=== PATIENT | female | born 1970 | race Caucasian/White ===

== ENCOUNTER 2022-05-16 08:52 | Outpatient (REF) | payer OTHER, SELFPAY ==
--- NOTE | ~2022-05-16 | US_ITS ---
EXAMINATION: US ABDOMEN COMPLETE CLINICAL INFORMATION: Right upper quadrant pain. COMPARISON: None TECHNIQUE: Real-time imaging of the abdominal viscera. FINDINGS: PANCREAS: Normal. ABDOMINAL AORTA: The proximal, mid, and distal segments are normal in caliber. INFERIOR VENA CAVA: Visualized portions are normal. LIVER: The liver is normal in size. The liver contour is normal. Parenchymal echogenicity is normal. There is an anechoic cyst in left hepatic lobe measuring 0.8 x 0.5 x 0.7 cm. No additional lesions seen. There is no intrahepatic biliary duct dilatation seen. GALLBLADDER: There is echogenic mobile debris. The gallbladder is physiologically distended without evidence of stones, wall thickening or pericholecystic fluid. COMMON BILE DUCT: Normal in caliber measuring 0.2 cm in diameter. RIGHT KIDNEY: No hydronephrosis. No renal calculi or focal parenchymal lesions. The kidney measures 10.8 cm in maximum dimension. There is an extrarenal kidney pelvis. LEFT KIDNEY: There is mild pelvic fullness. No hydronephrosis. No renal calculi or focal parenchymal lesions. The kidney measures 11.4 cm in maximum dimension. SPLEEN: Normal. The spleen measures 7.4 cm in maximum dimension. FREE FLUID: None. US/US abdomen complete IMPRESSION: 1. Small left hepatic lobe cyst. 2. There is echogenic mobile debris in the gallbladder but no echogenic stones or wall thickening. 3. Extrarenal right kidney pelvis and mild pelvic fullness left kidney. 4. The rest of the abdominal ultrasound is unremarkable.
--- NOTE | ~2022-05-16 | XR_ITS ---
EXAMINATION: XR chest 2V CLINICAL INFORMATION: Reason for Exam RUQ PAIN COMPARISON: None TECHNIQUE: 2 views of the chest FINDINGS: Clear lungs. No pneumothorax or pleural effusion. Normal cardiomediastinal silhouette. XR/XR chest 2V Impression: * Clear lungs.
== END 2022-05-16 08:53 | disposition home or self-care (01) ==
LOC: HO.US 08:52
PROVIDERS: PCP Internal Medicine; Visit Provider Internal Medicine
DX: R10.11 Right upper quadrant pain (principal)
CPT/HCPCS: 71046; 76700

== ENCOUNTER 2022-05-17 07:59 | Outpatient (REF) | payer OTHER, SELFPAY ==
[2022-05-17 11:45] LABS: MANUAL DIFF FLAG NO
[2022-05-17 11:51] LABS: Basophils Percent Auto 0.5 % (0-2); Eosinophils Absolute Auto 0.2 X10*3/uL (0.0-0.4); Eosinophils Percent Auto 2.4 % (0-4); Hematocrit 42.7 % (37.0-47.0); Hemoglobin 14.2 g/dl (12.0-16.0); Imm Gran Abs Auto 0.02 X10*3/uL (0.00-0.03); Imm Gran Pct Auto 0.2 % (0.0-0.4); Lymphocytes Absolute Auto 2.1 X10*3/uL (1.2-4.9); Lymphocytes Percent Auto 26.2 % (20-40); Mean Corpuscular HGB Conc 33.3 g/dl (31.0-35.0); Mean Corpuscular Hemoglobin 31.3 pg (27.0-33.0); Mean Corpuscular Volume 94.1 fL (80.0-98.0); Mean Platelet Volume 10.5 fL (9.4-12.3); Monocytes Absolute Auto 0.5 X10*3/uL (0.1-1.2); Monocytes Percent Auto 5.8 % (2-11); Neutrophils Absolute Auto 5.2 x10*3/uL (2.0-8.3); Neutrophils Percent Auto 64.9 % (45-73); Platelet Count 335 X10*3/uL (160-400); Red Blood Count 4.54 X10*6/uL (4.20-5.50); Red Cell Distribution Width 12.8 % (11.0-16.0)
[2022-05-17 12:28] LABS: Alanine Aminotransferase 60 U/L (0-31); Albumin Level 4.3 g/dL (3.5-5.0); Alkaline Phosphatase 62 U/L (39-117); Anion Gap 11 (12-20); Aspartate Amino Transferase 37 U/L (5-31); Bilirubin Total 0.6 mg/dL (0.0-1.0); Blood Urea Nitrogen 13 mg/dL (9-16); Calcium 9.7 mg/dL (8.4-10.2); Carbon Dioxide 26 mmol/L (22-29); Chloride 107 mmol/L (96-108); Cholesterol 283 mg/dL; Estimated Glomerular Filt Rate > 60; Glucose Fasting 96 mg/dL (60-99); HDL Cholesterol 72 mg/dL; LDL Cholesterol Calculated 192 mg/dl; Potassium 3.6 mmol/L (3.3-5.1); Sodium 140 mmol/L (135-145); Total Protein 6.8 g/dL (6.5-8.0); Triglycerides 96 mg/dL
[2022-05-17 12:44] LABS: Thyroid Stimulating Hormone 1.87 uIU/mL (0.32-4.0); Vitamin D 25-OH Total 12.2 ng/mL (>30)
[2022-05-18 17:49] LABS: Prolactin 9.9 ng/mL
== END 2022-05-17 08:00 | disposition home or self-care (01) ==
LOC: HO.HMGCLDS 07:59
PROVIDERS: PCP Internal Medicine; Visit Provider Internal Medicine
DX: F41.9 Anxiety disorder, unspecified (principal); R10.11 Right upper quadrant pain; M94.28 Chondromalacia, other site
CPT/HCPCS: 36415; 80053; 80061; 82306; 84146; 84443; 85025

== ENCOUNTER 2022-06-02 08:17 | Outpatient (REF) | payer OTHER, SELFPAY ==
--- NOTE | ~2022-06-02 | MM_ITS ---
EXAMINATION: MM DIAGNOSTIC DIGITAL BREAST TOMOSYNTHESIS, BILATERAL US BREAST TARGETED, RIGHT CLINICAL INFORMATION: Right breast mass 5 o'clock position. The lifetime risk of breast cancer based on the Tyrer-Cuzick Model is 11.3%. COMPARISON: Mammography: 07/12/2021 and studies dating back to 07/01/2013. TECHNIQUE: Digital breast tomosynthesis is performed in both the craniocaudal and mediolateral oblique views along with computer-aided detection (CAD). Synthesized 2D images are generated from the tomosynthesis. Targeted right breast ultrasound. FINDINGS: There are scattered areas of fibroglandular density (ACR BI-RADS breast composition Category b). There are no significant masses, abnormal calcifications, or other abnormalities. Stable density within the upper outer aspect of the left breast is identified. No abnormal mammographic finding is seen in region of palpable abnormality anteroinferior aspect of the right breast. Targeted right breast ultrasound did not demonstrate any abnormal cystic or solid masses. No region of abnormal distal sound shadowing is identified. No edematous changes seen. There are a few simple cysts measuring up to 3 mm in longest dimension. Results are discussed with the patient at time of visit. MM/MM tomosynthesis diagnostic BI IMPRESSION: There are no significant changes from prior study. ASSESSMENT: BI-RADS 2: Benign RECOMMENDATION: Routine annual mammography screening. This patient's information was entered into a reminder system with a target due date for their next mammogram.
== END 2022-06-02 08:18 | disposition home or self-care (01) ==
LOC: HO.MAMMO 08:17
PROVIDERS: PCP Internal Medicine; Visit Provider Internal Medicine
DX: N63.41 Unspecified lump in right breast, subareolar (principal)
CPT/HCPCS: 76642; 77062; 77066

== ENCOUNTER 2022-07-28 15:20 | Outpatient (REF) | payer OTHER, SELFPAY ==
--- NOTE | ~2022-07-28 | CT_ITS ---
EXAMINATION: CT CHEST SCREENING CLINICAL INFORMATION: Nicotine dependence, cigarettes. Current smoker 1 pack per day for 36 years. COMPARISON: None available. TECHNIQUE: Multidetector volumetric CT imaging of the chest is performed without contrast using low-dose technique. Additional 2-D coronal and sagittal reformatted images and axial 3-D maximum intensity projection (MIP) images are generated on the CT workstation. This CT examination was performed using dose optimization techniques as appropriate, variously including the following: *Automated exposure control *Adjustment of mA and/or kV according to patient size (this includes techniques or standardized protocols for targeted exams where dose is matched to indication/reason for exam; i.e. extremities or head) *Use of iterative reconstruction technique DLP: 41 mGy-cm FINDINGS: LUNGS: The lungs are well expanded and clear of acute pneumonic process. There is 4 mm round semisolid nodule right lower lobe at the azygoesophageal recess on axial image 27/4. There is a peribronchiolar 3 mm nodule right lower lobe centrally axial image 229/6, 3 mm nodule right upper lobe medially on axial image 151/6. MEDIASTINUM: The thyroid lobes are symmetric and normal. The central trachea and the bronchi are widely patent. The heart size and the great vessels are normal caliber. No pericardial effusion seen. No abnormal size mediastinal or hilar lymph nodes seen. CORONARY ARTERY CALCIFICATION: None visualized on this study. PLEURA: There is no pleural effusion. No pleural mass or thickening. AXILLA: Small shotty lymph nodes in bilateral axillae are noted. UPPER ABDOMEN: The visualized liver, spleen, pancreas, and bilateral adrenal glands are unremarkable. OSSEOUS STRUCTURES: No aggressive lytic or sclerotic process seen. CT/CT lung screening IMPRESSION: Small pulmonary nodules right upper lobe and right lower lobe. ASSESSMENT: Lung-RADS category 2: Benign RECOMMENDATION: Low-dose annual CT chest.
== END 2022-07-28 15:21 | disposition home or self-care (01) ==
LOC: HO.CT 15:20
PROVIDERS: PCP Internal Medicine; Visit Provider Physician Assistant Medical
DX: Z12.2 Encounter for screening for malignant neoplasm of respiratory organs (principal); F17.210 Nicotine dependence, cigarettes, uncomplicated
CPT/HCPCS: 71271; G0296

== ENCOUNTER 2022-11-20 07:56 | Outpatient (REF) | payer OTHER, SELFPAY ==
[2022-11-20 12:01] LABS: Alanine Aminotransferase 27 U/L (0-31); Albumin Level 4.2 g/dL (3.5-5.0); Alkaline Phosphatase 55 U/L (39-117); Anion Gap 12 (12-20); Aspartate Amino Transferase 22 U/L (5-31); Bilirubin Total 0.7 mg/dL (0.0-1.0); Blood Urea Nitrogen 13 mg/dL (9-16); Calcium 9.6 mg/dL (8.4-10.2); Carbon Dioxide 26 mmol/L (22-29); Chloride 108 mmol/L (96-108); Cholesterol 218 mg/dL; Estimated Glomerular Filt Rate > 60; Glucose Fasting 88 mg/dL (60-99); HDL Cholesterol 65 mg/dL; LDL Cholesterol Calculated 135 mg/dl; Potassium 3.5 mmol/L (3.3-5.1); Sodium 142 mmol/L (135-145); Total Protein 6.8 g/dL (6.5-8.0); Triglycerides 94 mg/dL
[2022-11-20 12:16] LABS: Vitamin D 25-OH Total 61.4 ng/mL (>30)
== END 2022-11-20 07:57 | disposition home or self-care (01) ==
LOC: HO.HMGCLDS 07:56
PROVIDERS: PCP Internal Medicine; Visit Provider Internal Medicine
DX: R10.11 Right upper quadrant pain (principal); E78.00 Pure hypercholesterolemia, unspecified; E55.9 Vitamin D deficiency, unspecified
CPT/HCPCS: 36415; 80053; 80061; 82306

== ENCOUNTER 2023-02-22 06:12 | Day surgery (SDC) | payer OTHER, SELFPAY ==
--- OUTSIDE RECORDS SUMMARY | 2023-02-22 06:14 | XMS_ITS | Patient Health Record ---
Author Name Unknown Organization Kike Ellis DO, FAC Address [address] [place] [phone] Care Team Providers Care Burglary Investigator Name Role Phone Kike Ellis Primary Care Provider ALLERGIES No Known Allergies RESULTS Component Value Reference Range Notes US abdomen complete Reviewed date:05/17/2022 04:47:55 PM Interpretation:Abnormal Performing Lab: Notes/Report: [address] [address] Ultrasound Report Signed Patient: Greta Collazo MR#: [id number] 68 : 1970 Acct:[id number] Age/Sex: 51 / F ADM Date: 05/16/22 Loc: HO.US Attending Dr: Kike Ellis DO Ordering Physician: Kike Ellis DO Date of Service: 05/16/22 Procedure(s): US abdomen complete Accession Number(s): [id number] cc: Kike Ellis DO EXAMINATION: US ABDOMEN COMPLETE CLINICAL INFORMATION: Right upper quadrant pain. COMPARISON: None TECHNIQUE: Real-time imaging of the abdominal viscera. FINDINGS: PANCREAS: Normal. ABDOMINAL AORTA: The proximal, mid, and distal segments are normal in caliber. INFERIOR VENA CAVA: Visualized portions are normal. LIVER: The liver is normal in size. The liver contour is normal. Parenchymal echogenicity is normal. There is an anechoic cyst in left hepatic lobe measuring 0.8 x 0.5 x 0.7 cm. No additional lesions seen. There is no intrahepatic biliary duct dilatation seen. GALLBLADDER: There is echogenic mobile debris. The gallbladder is physiologically distended without evidence of stones, wall thickening or pericholecystic fluid. COMMON BILE DUCT: Normal in caliber measuring 0.2 cm in diameter. RIGHT KIDNEY: No hydronephrosis. No renal calculi or focal parenchymal lesions. The kidney measures 10.8 cm in maximum dimension. There is an extrarenal kidney pelvis. LEFT KIDNEY: There is mild pelvic fullness. No hydronephrosis. No renal calculi or focal parenchymal lesions. The kidney measures 11.4 cm in maximum dimension. SPLEEN: Normal. The spleen measures 7.4 cm in maximum dimension. FREE FLUID: None. US/US abdomen complete IMPRESSION: 1. Small left hepatic lobe cyst. 2. There is echogenic mobile debris in the gallbladder but no echogenic stones or wall thickening. 3. Extrarenal right kidney pelvis and mild pelvic fullness left kidney. 4. The rest of the abdominal ultrasound is unremarkable. Dictated By: Emory Quijano MD Signed By: <Electronically signed by Emory Quijano MD in OV> 05/17/22 1611 DD/ 0938 TD/TT: Glycerine Plant Operator: [facility] XR chest 2V Reviewed date:05/18/2022 11:56:03 AM Interpretation:Normal Performing Lab: Notes/Report: [address] [address] XRay Report Signed Patient: Greta Collazo MR#: [id number] [birth year] : 1970 Acct:[id number] Age/Sex: 51 / F ADM Date: 05/16/22 Loc: [facility] Attending Dr: Kike Ellis DO Ordering Physician: Kike Ellis DO Date of Service: 05/16/22 Procedure(s): XR chest 2V Accession Number(s): [id number] cc: Kike Ellis DO EXAMINATION: XR chest 2V CLINICAL INFORMATION: Reason for Exam RUQ PAIN COMPARISON: None TECHNIQUE: 2 views of the chest FINDINGS: Clear lungs. No pneumothorax or pleural effusion. Normal cardiomediastinal silhouette. XR/XR chest 2V Impression: * Clear lungs. Dictated By: Yeny Goddard MD Signed By: <Electronically signed by Yeny Goddard MD in OV> 05/17/22 1850 DD/ 0924 TD/TT: Glycerine Plant Operator: Complete Blood Count Auto Di ff Reviewed date:05/17/2022 11:59:01 AM Interpretation:Normal Performing Lab:[facility], [address] [place] [phone] Notes/Report: White Blood Count 8.0 4.8-10.8 X10*3/uL Red Blood Count 4.54 4.20-5.50 X10*6/uL Hemoglobin 14.2 12.0-16.0 g/dl Hematocrit 42.7 37.0-47.0 % Mean Corpuscular Volume 94.1 80.0-98.0 fL Mean Corpuscular Hemoglobin 31.3 27.0-33.0 pg Mean Corpuscular HGB Conc 33.3 31.0-35.0 g/dl Red Cell Distribution Width 12.8 11.0-16.0 % Platelet Count 335 160-400 X10*3/uL Mean Platelet Volume 10.5 9.4-12.3 fL Neutrophils Percent Auto 64.9 45-73 % Imm Gran Pct Auto 0.2 0.0-0.4 % Lymphocytes Percent Auto 26.2 20-40 % Monocytes Percent Auto 5.8 2-11 % Eosinophils Percent Auto 2.4 0-4 % Basophils Percent Auto 0.5 0-2 % NRBC Pct Auto 0.0 0.0-0.2 /100WBC Neutrophils Absolute Auto 5.2 2.0-8.3 x10*3/u L Imm Gran Abs Auto 0.02 0.00-0.03 X10*3/uL Lymphocytes Absolute Auto 2.1 1.2-4.9 X10*3/u L Monocytes Absolute Auto 0.5 0.1-1.2 X10*3/uL Eosinophils Absolute Auto 0.2 0.0-0.4 X10*3/u L Basophils Absolute Auto 0.0 0.0-0.2 X10*3/uL NRBC Abs Auto 0.000 0.0-0.012 X10*3/uL Comprehensive [place]. Panel Fa st Reviewed date:05/17/2022 12:53:27 PM Interpretation:Abnormal Performing Lab:[facility], [address] [place] [address] Notes/Report: Sodium 140 135-145 mmol/L Potassium 3.6 3.3-5.1 mmol/L Chloride 107 96-108 mmol/L Carbon Dioxide 26 22-29 mmol/L Anion Gap 11 12-20 Blood Urea Nitrogen 13 9-16 mg/dL Creatinine 0.81 0.5-1.4 mg/dL Estimated Glomerular Filt Rate > 60 NOTE: For -Pakistani individuals, multiply the result by 1.210. Chronic Kidney Disease: Estimated GFR < 60 mL/min/1.73m2 Severe Kidney Disease: Estimated GFR < 15 mL/min/1.73m2 Glucose Fasting 96 60-99 mg/dL Calcium 9.7 8.4-10.2 mg/dL Bilirubin Total 0.6 0.0-1.0 mg/dL Aspartate Amino Transferase 37 5-31 U/L Alanine Aminotransferase 60 0-31 U/L Total Protein 6.8 6.5-8.0 g/dL Albumin Level 4.3 3.5-5.0 g/dL Alkaline Phosphatase 62 39-117 U/L Lipid Panel Reviewed date:05/17/2022 12:53:27 PM Interpretation:Abnormal Performing Lab:[facility], [address] [place] [phone] Notes/Report: Triglycerides 96 Desirable Triglyceride: less than 150 mg/dL Borderline High Triglyceride 150-199 mg/dL High Triglyceride: 200-499 mg/dL Very High Triglyceride: greater than or equal to 5OO mg/dL Cholesterol 283 Desirable Cholesterol: less than 200 mg/dL Borderline High Cholesterol: 200-239 mg/dL High Cholesterol: greater than 239 mg/dL LDL Cholesterol Calculated 192 Desirable LDL: less than 100 mg/dL Near Optimal/Above Optimal LDL: 110-129 mg/dL Borderline High LDL: 130-159 mg/dL High LDL: 160-189 mg/dL Very High LDL: greater than or equal to 190 mg/dL HDL Cholesterol 72 Desirable HDL: greater than 40 mg/dL Note: This HDL assay may give artificially low results in patients with liver disease. Vitamin D 25-OH Total Reviewed date:05/17/2022 12:53:27 PM Interpretation:Abnormal Performing Lab:[facility], [address] [place] [phone] Notes/Report: Vitamin D 25-OH Total 12.2 >30 ng/mL Health Based Reference Values* < 20 ng/mL Deficient 20-30 ng/mL Insufficient > 30 ng/mL Sufficient *Ela VELASQUEZ. N Engl J Med. 2007;357:266-280 Care must be taken in interpreting Vitamin D results from different laboratories and methodologies. Published data demonstrated that results from patients undergoing hemodialysis may show a negative bias when tested with various automated 25-OH vitamin D assays when compared to LC-MS/MS. When testing samples from patients whose predominant form of Vitamin D is Vitamin D2, such as patients receiving Vitamin D2 supplementation, results that are subtherapeutic should be confirmed with another method such as LC-MS/MS. Thyroid Stimulating Hormone Reviewed date:05/17/2022 12:55:04 PM Interpretation:Normal Performing Lab:[facility], [address] [place] [phone] Notes/Report: Thyroid Stimulating Hormone 1.87 0.32-4.0 uIU/ mL TSH 3rd Generation ([facility]) Prolactin Reviewed date:05/18/2022 11:04:52 PM Interpretation:Normal Performing Lab:[facility], [address] [place] [phone] Notes/Report: Prolactin 9.9 Reference Range Females Non- 3.0-30.0 10.0-209.0 Postmenopausal 2.0-20.0 THIS TEST WAS PERFORMED AT: [facility] [address] ([facility]) [place] [address] MARY ANN ALMODOVAR MD MM tomosynthesis diagnostic BI Reviewed date:06/03/2022 01:28:59 PM Interpretation:Benign Performing Lab: Notes/Report: [address] [place] [address] Mammography Report Signed Patient: Greta Collazo MR#: [id number] [birth year] : 1970 Acct:[id number] Age/Sex: 51 / F ADM Date: 06/02/22 Loc: HO.MAMMO Attending Dr: Kike Ellis DO Ordering Physician: Kike Ellis DO Results: 2Ben ign Findings Date of Service: 06/02/22 Follow Up: 1 Year From Orig inal Mammogram Procedure(s): MM tomosynthesis diagnostic BI Accession Number(s): [id number] cc: Kike Ellis DO EXAMINATION: MM DIAGNOSTIC DIGITAL BREAST TOMOSYNTHESIS, BILATERAL US BREAST TARGETED, RIGHT CLINICAL INFORMATION: Right breast mass 5 o'clock position. The lifetime risk of breast cancer based on the Tyrer-Cuzick Model is 11.3%. COMPARISON: Mammography: 07/12/2021 and studies dating back to 07/01/2013. TECHNIQUE: Digital breast tomosynthesis is performed in both the craniocaudal and mediolateral oblique views along with computer-aided detection (CAD). Synthesized 2D images are generated from the tomosynthesis. Targeted right breast ultrasound. FINDINGS: There are scattered areas of fibroglandular density (ACR BI-RADS breast composition Category b). There are no significant masses, abnormal calcifications, or other abnormalities. Stable density within the upper outer aspect of the left breast is identified. No abnormal mammographic finding is seen in region of palpable abnormality anteroinferior aspect of the right breast. Targeted right breast ultrasound did not demonstrate any abnormal cystic or solid masses. No region of abnormal distal sound shadowing is identified. No edematous changes seen. There are a few simple cysts measuring up to 3 mm in longest dimension. Results are discussed with the patient at time of visit. MM/MM tomosynthesis diagnostic BI IMPRESSION: There are no significant changes from prior study. ASSESSMENT: BI-RADS 2: Benign RECOMMENDATION: Routine annual mammography screening. This patient's information was entered into a reminder system with a target due date for their next mammogram. Dictated By: Ten Calderon MD Signed By: <Electronically signed by Ten Calderon MD in OV> 06/02/22 1632 DD/ 0845 TD/TT: Glycerine Plant Operator: TAMIE US breast RT limited Reviewed date:06/03/2022 01:30:47 PM Interpretation:Benign Performing Lab: Notes/Report: [facility] [address] [place] [address] Ultrasound Report Signed Patient: Greta Collazo MR#: [id number] [birth year] : 1970 Acct:[id number] Age/Sex: 51 / F ADM Date: 06/02/22 Loc: HO.MAMMO Attending Dr: Kike Ellis DO Ordering Physician: Kike Ellis DO Date of Service: 06/02/22 Procedure(s): US breast RT limited Accession Number(s): [id number] cc: Kike Ellis DO EXAMINATION: MM DIAGNOSTIC DIGITAL BREAST TOMOSYNTHESIS, BILATERAL US BREAST TARGETED, RIGHT CLINICAL INFORMATION: Right breast mass 5 o'clock position. The lifetime risk of breast cancer based on the Tyrer-Cuzick Model is 11.3%. COMPARISON: Mammography: 07/12/2021 and studies dating back to 07/01/2013. TECHNIQUE: Digital breast tomosynthesis is performed in both the craniocaudal and mediolateral oblique views along with computer-aided detection (CAD). Synthesized 2D images are generated from the tomosynthesis. Targeted right breast ultrasound. FINDINGS: There are scattered areas of fibroglandular density (ACR BI-RADS breast composition Category b). There are no significant masses, abnormal calcifications, or other abnormalities. Stable density within the upper outer aspect of the left breast is identified. No abnormal mammographic finding is seen in region of palpable abnormality anteroinferior aspect of the right breast. Targeted right breast ultrasound did not demonstrate any abnormal cystic or solid masses. No region of abnormal distal sound shadowing is identified. No edematous changes seen. There are a few simple cysts measuring up to 3 mm in longest dimension. Results are discussed with the patient at time of visit. US/US breast RT limited IMPRESSION: There are no significant changes from prior study. ASSESSMENT: BI-RADS 2: Benign RECOMMENDATION: Routine annual mammography screening. This patient's information was entered into a reminder system with a target due date for their next mammogram. Dictated By: Ten Calderon MD Signed By: <Electronically signed by Ten Calderon MD in OV> 06/02/22 1632 DD/ 0915 TD/TT: Glycerine Plant Operator: TAMIE Humphreys [place]. Panel Fa st Reviewed date:11/20/2022 12:28:04 PM Interpretation:Normal Performing Lab:[facility], [address] [place] [address], [place] [address] Notes/Report: Sodium 142 135-145 mmol/L Potassium 3.5 3.3-5.1 mmol/L Chloride 108 96-108 mmol/L Carbon Dioxide 26 22-29 mmol/L Anion Gap 12 12-20 Blood Urea Nitrogen 13 9-16 mg/dL Creatinine 0.77 0.5-1.4 mg/dL Estimated Glomerular Filt Rate > 60 NOTE: For -Pakistani individuals, multiply the result by 1.210. Chronic Kidney Disease: Estimated GFR < 60 mL/min/1.73m2 Severe Kidney Disease: Estimated GFR < 15 mL/min/1.73m2 Glucose Fasting 88 60-99 mg/dL Calcium 9.6 8.4-10.2 mg/dL Bilirubin Total 0.7 0.0-1.0 mg/dL Aspartate Amino Transferase 22 5-31 U/L Alanine Aminotransferase 27 0-31 U/L Total Protein 6.8 6.5-8.0 g/dL Albumin Level 4.2 3.5-5.0 g/dL Alkaline Phosphatase 55 39-117 U/L Lipid Panel Reviewed date:11/20/2022 12:28:04 PM Interpretation:Abnormal Performing Lab:[facility], [address] [place] [phone] Notes/Report: Triglycerides 94 Desirable Triglyceride: less than 150 mg/dL Borderline High Triglyceride 150-199 mg/dL High Triglyceride: 200-499 mg/dL Very High Triglyceride: greater than or equal to 5OO mg/dL Cholesterol 218 Desirable Cholesterol: less than 200 mg/dL Borderline High Cholesterol: 200-239 mg/dL High Cholesterol: greater than 239 mg/dL LDL Cholesterol Calculated 135 Desirable LDL: less than 100 mg/dL Near Optimal/Above Optimal LDL: 110-129 mg/dL Borderline High LDL: 130-159 mg/dL High LDL: 160-189 mg/dL Very High LDL: greater than or equal to 190 mg/dL HDL Cholesterol 65 Desirable HDL: greater than 40 mg/dL Note: This HDL assay may give artificially low results in patients with liver disease. Vitamin D 25-OH Total Reviewed date:11/20/2022 12:28:04 PM Interpretation:Normal Performing Lab:[facility], [address] [place] [phone] Notes/Report: Vitamin D 25-OH Total 61.4 >30 ng/mL Health Based Reference Values* < 20 ng/mL Deficient 20-30 ng/mL Insufficient > 30 ng/mL Sufficient *Ela VELASQUEZ. N Engl J Med. 2007;357:266-280 Care must be taken in interpreting Vitamin D results from different laboratories and methodologies. Published data demonstrated that results from patients undergoing hemodialysis may show a negative bias when tested with various automated 25-OH vitamin D assays when compared to LC-MS/MS. When testing samples from patients whose predominant form of Vitamin D is Vitamin D2, such as patients receiving Vitamin D2 supplementation, results that are subtherapeutic should be confirmed with another method such as LC-MS/MS. 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 ed[facility] Referred Provider Cong Khan Referred Provider Specialty Otology, Lar yngology, Rhinology General Notes Page,Deidra 3 03:27:26 PM EST > Referral faxed and patient is aware this office likes the patient to schedule appointment and she was given the phone number. Referral Priority Routine Reason Colon cancer screeni ng Diagnosis 1 Colon cancer screeni ng (Z12.11) Referral Organization Kike Sánchez FACP Referring Provider First Name Kike Referring Provider Barry Name Rhonda Referring Provider [facility] Internal edicine Referred Provider Kike Caldera Referred Provider Specialty Gastroentero logy General Notes Page,Deidra 3 03:33:47 PM EST > Referral and notes faxed and patient is aware Referral Priority Routine Referral Appointment Date 09/20/2022 Reason Throat pain Diagnosis 1 Throat pain (R07.0) Referral Organization Kike Sánchez FACP Referring Provider First Name Kike Referring Provider Barry Name Rhonda Referring Provider [facility] edicine Referred Provider Namita Brown Referred Provider Specialty Otolaryngolo gy General Notes Page,Deidra 3 01:55:50 PM EST > Referral faxed and LMOM for that office to call our office back, Yessi Faye 05/24/2022 10:20:36 AM EST > letter to patient, Yessi Faye 05/24/2022 03:18:48 PM EST > referral re-faxed to [phone], Yessi Faye 05/26/2022 02:14:09 PM EST > Dr. Ellis would like the patient seen sometime in May. LMOVM for triage nurse at [facility] neck report faxed. Referral Priority Routine Referral Appointment Date 09/06/2022 Reason Lung cancer screeing Diagnosis 1 Cigarette nicotine d ependence without complication (F17.210) Referral Organization Kike Sánchez FACP Referring Provider First Name Kike Referring Provider Last Name Rhonda Referring Provider Speciality Internal M edicine Referred Provider [facility], Lung Cancer Scr eening Program Referred Provider Specialty Thoracic [place] [facility] General Notes Page,Deidra 3 11:01:02 AM EST > Patient will be in this week to sign form before referral can be sent over.Neyda Joan 06/09/2022 09:37:00 AM EST > referral faxed to [facility] Thoracic Surgery Referral Priority Routine Reason complete skin exam Diagnosis 1 Skin cancer screenin g (Z12.83) Referral Organization Kike Sánchez FACP Referring Provider First Name Kike Referring Provider Last Name Rhonda Referring Provider Speciality Internal M edicine Referred Provider Junior Carrillo Referred Provider Specialty Dermatology General Notes Page,Deidra 3 01:35:15 PM EST > Referral faxed and LMOM for that office to call us back with appointment date and time to see hector Lopez. Referral Priority Routine Referral Appointment Date 05/23/2023 MEDICATIONS Medication SIG (Take, Route, Frequency, Duration) Notes Start Date End Date Status Vitamin D 50 MCG (1999 UT) 1 capsule Ora lly Once a day 05/22/2022 Active buPROPion HCl ER (XL) 150 MG 1 tablet in the morning Orally Once a day for 30 day(s) 11/21/2022 Active IMMUNIZATIONS Vaccine Route Administration Date Status Comme nts Td (adult) Unknown 12/29/2010 Administered COVID-19 Moderna Vaccine Unknown 09/02/2020 Administere d Influenza Quad Unknown 04/12/2022 Administered COVID-19 Moderna Vaccine Unknown 09/30/2020 Administere d MMR Unknown 01/21/2003 Administered COVID-19 Moderna Vaccine Unknown 04/16/2021 Administere d COVID-19 Moderna Bivalent Unknown 04/18/2022 Administer ed TDaP Unknown 02/23/2011 Administered SOCIAL HISTORY Tobacco Use: Social History Observation Description Date Details (start date - stop date) Current Smoker NA - NA Sex Assigned At : Social History Observation Description Sex Assigned At Unknown Tobacco Use/Smoking Question Answer Notes Patient is a current smoker How often do you smoke cigarettes? every day How many cigarettes a day do you smoke? 5 or les s How soon after you wake up d o you smoke your first cigarette? 31-60 minutes Are you interested in quitting? Thinking about q uitting Additional Findings: Tobacco User Kalani t cigarette smoker, not currently using another form of tobacco Alcohol Screen Question Answer Notes Did you have a drink containing alcohol in the p ast year? No Points 0 Interpretation Negative PROBLEMS Problem Type ICD Code Onset Dates Problem Status W/U Status Risk SNOMED Code Notes Problem Anxiety (F41.9) Active confirmed 687988 02 Problem Hypercholesterolemia (E78.00) Active confirmed 86225048 Problem Vitamin D deficiency (E55.9) Active confirmed 30437383 Problem Cigarette nicotine dependence without complication (F17.210) Active confirmed 00453694 Problem Lung nodule (R91.1) Active confirmed 78 [id number] Encounters Encounter Location Date Provider Diagnosis Kike Ellis DO, [address] [id number] 08/02/2022 Kike Ellis DO, [address] [id number] 11/21/2022 Kike Ellis Hypercholesterolemia E78.00 ; Vitamin D deficiency E55.9 and Anxiety F41.9 Kike Ellis DO, [address] [id number] 04/26/2022 Kike Ellis DO, [address] [id number] 05/03/2022 Kike Ellis Anxiety F41.9 ; Righ t upper quadrant abdominal pain R10.11 ; Chondromalacia, other site M94.28 ; Colon cancer screening Z12.11 and Encounter for screening mammogram for malignant neoplasm of breast Z12.31 Kike Ellis DO, [address] [id number] 05/26/2022 Kike Ellis DO, [address] [id number] 05/22/2022 Kike Ellis Hypercholesterolemia E78.00 ; Vitamin D deficiency E55.9 ; Cigarette nicotine dependence without complication F17.210 ; Throat pain R07.0 and Right upper quadrant abdominal pain R10.11 Kike Ellis DO, [address] [id number] 12/22/2022 Kike Vegas Rhonda DO, [facility] [address] [place], [place] [id number] 02/02/2023 Kike Ellis DO, [address] [id number] 05/31/2022 Kike Ellis Subareolar mass of r ight breast N63.41 and Lung nodule R91.1 Kike Ellis DO, [facility] [address] [place], [place] [id number] 05/16/2022 Kike Ellis DO, [address] [id number] 09/14/2022 Kike Ellis DO, [address] [id number] 09/18/2022 Kike Ellis DO, [address] [id number] 01/21/2023 Kike Ellis ASSESSMENTS Encounter Date Diagnosis Assessment Notes Treatment Notes Treatment Clinical Notes 05/31/2022 Subareolar mass of r ight breast (ICD-10 - N63.41) 11/21/2022 Vitamin D deficiency (ICD-10 - E55.9) 11/21/2022 Hypercholesterolemia (ICD-10 - E78.00) Low cholesterol diet 05/03/2022 Anxiety (ICD-10 - F41.9) [employer] tender medical treatment for her anxiety 05/03/2022 Right upper quadrant abdominal pain (ICD-10 - R10.11) 05/22/2022 Vitamin D deficiency (ICD-10 - E55.9) Begin Vitamin D. Begin a daily multivitamin 05/22/2022 Hypercholesterolemia (ICD-10 - E78.00) Greta does not want to take a statin. She would prefer to start with a low cholesterol diet. Low cholesterol diet (written instructions provided) 05/31/2022 Lung nodule (ICD-10 - R91.1) 11/21/2022 Anxiety (ICD-10 - F41.9) 05/03/2022 Chondromalacia, othe r site (ICD-10 - M94.28) 05/22/2022 Cigarette nicotine dependence without complication (ICD-10 - F17.210) Refer for a low dose CT scan of the chest to screen for lung cancer 05/03/2022 Colon cancer screeni ng (ICD-10 - Z12.11) 05/22/2022 Throat pain (ICD-10 - R07.0) 05/03/2022 Encounter for screen ing mammogram for malignant neoplasm of breast (ICD-10 - Z12.31) 05/22/2022 Right upper quadrant abdominal pain (ICD-10 - R10.11) If her RUQ pain worsens I will refer her to Surgery PLAN OF TREATMENT Pending Test Test Name Order Date Urinalysis 05/03/2022 Insurance Providers Payer Name Payer Address Payer Phone Subscriber Number Group Number Insured Name Patient Relationship to Insured Coverage Start Date Coverage End Date [employer] [address] STEPHANIE ESCUDERO [id number] Greta Collazo Self - patient is the insured MEDICAL (GENERAL) HISTORY Medical History History ICD Code asthma - mild intermittent anxiety depression nicotine dependency pituitary adenoma hyperprolactinemia Hypercholesterolemia E78.00 Vitamin D deficiency E55.9 Surgical History Surgery Date(Month/Year) wisdom teeth extraction
[2023-02-22 06:29] VITALS: BP 113/76; PULSE 88; RESP 20; TEMP 36.1; O2SAT 97; BMI 23.0
[2023-02-22] MEDS: Lactated Ringers 1,000 ML 100 ML IVCONT (06:50)
--- NOTE | 2023-02-22 07:20 | P.CONAN_ITS ---
Documented by User: Joyce Prado NP 02/21/23 09:14 HPI - Anesthesia Eval Consult details Narrative: 52yo F for Upper Endoscopy and Colonoscopy [facility] Active Problems Active Problems: All Active Problems (Updated 07/28/22 @ 15:19 by Sana Veliz PA-C) Nicotine dependence, cigarettes, uncomplicated (Acute) Past Medical History Medical History Marijuana smoker Smoker Nicotine dependence, cigarettes, uncomplicated Vitamin D deficiency Pituitary adenoma Hypercholesteremia Surgical History Surgical History History of wisdom tooth extraction Social History Social History Patient Tobacco Use Status: Current everyday Tobacco user Tobacco use type: Cigarette Cigarettes Per Day: 5 Years Smoked: (current smoker, onset 14, x 37yrs, mainly 1ppd, now 1/4ppd - 30pyh) Are you DNR?: No Advance Directives: No Advance Directives Information Provided: Yes Nutrition Risks: No Nutritional Risk Meds Allergies Allergy/AdvReac Type Severity Reaction Status Date / Time No Known Allergies Allergy Unverified 02/18/23 20:01 Home Medications Medication Instructions Recorded Confirmed Last Taken Type bupropion HCl 150 mg 24 hr tablet, 150 mg PO QAM 02/21/23 Unknown History extended release Exam Exam Date and Time: February 21, [id number] Pertinent Lab Results Pertinent Lab Results: Laboratory Tests 05/17/22 11/20/22 08:07 08:04 WBC 8.0 Hgb 14.2 Hct 42.7 Plt Count 335 Sodium 142 Potassium 3.5 Chloride 108 Carbon Dioxide 26 BUN 13 Creatinine 0.77 Assessment and Plan Assessment Anesthesia Assessment: Chart Reviewed Documented by User: Shirley Galdamez DO 02/22/23 07:26 HPI - Anesthesia Eval Consult details Narrative: 52yo F for Upper Endoscopy and Colonoscopy. Smoker. Mild COPD per patient. [facility] Past Medical History Medical History Marijuana smoker Smoker Nicotine dependence, cigarettes, uncomplicated Vitamin D deficiency Pituitary adenoma Hypercholesteremia Surgical History Surgical History History of wisdom tooth extraction History of Problems with Anesthesia: No Social History Social History Patient Tobacco Use Status: Current everyday Tobacco user Tobacco use type: Cigarette Cigarettes Per Day: 5 Years Smoked: (current smoker, onset 14, x 37yrs, mainly 1ppd, now 1/4ppd - 30pyh) Are you DNR?: No Advance Directives: No Advance Directives Information Provided: Yes Nutrition Risks: No Nutritional Risk Meds Allergies Allergy/AdvReac Type Severity Reaction Status Date / Time No Known Allergies Allergy Unverified 02/18/23 20:01 Home Medications Medication Instructions Recorded Confirmed Last Taken Type bupropion HCl 150 mg 24 hr tablet, 150 mg PO QAM 02/21/23 Unknown History extended release Exam Exam Date and Time: February 22, 2023 0720 Height,Weight and Vital Signs: Vital Signs Temperature 97 F 02/22/23 06:29 Pulse Rate 88 02/22/23 06:29 Respiratory Rate 20 02/22/23 06:29 Blood Pressure 113/76 02/22/23 06:29 Pulse Oximetry 97 02/22/23 06:29 Oxygen Delivery Method Room Air 02/22/23 06:29 Temperature 97 F 02/22/23 06:29 Pulse Rate 88 02/22/23 06:29 Respiratory Rate 20 02/22/23 06:29 Blood Pressure 113/76 02/22/23 06:29 Pulse Oximetry 97 02/22/23 06:29 Oxygen Delivery Method Room Air 02/22/23 06:29 Height 5 ft 2.5 in Weight 58.06 kg Airway Mallampati Class: I TM Dist: >3cm Neck ROM: Full Loose/Missing/Broken Teeth: No (patient denies) Heart: S1S2 Lungs: CTAB Assessment and Plan Assessment Anesthesia Assessment: Anesthesia Plan Discussed and Chart Reviewed Final Anesthetic Review History of Problems with Anesthesia: No NPO: Yes ASA Class: II Final Preanesthetic Review: No Changes in Pt Med Stat, Meds/Allgs Chart Reviewed, Consent Obtained/Reviewed and Anes Risks/Benef Reviewed Patient Risk: Low Procedure Risk: Low Anesthetic Plan Anesthetic Plan: MAC: and Agree w/ Assess. and Plan Disposition: Standard PACU
[2023-02-22 08:40] VITALS: BP 88/62; PULSE 69; RESP 16; TEMP 36; O2SAT 97
--- NOTE | 2023-02-22 08:44 | PM.OP ---
Brief Operative Note Date of Service: 02/22/23 Pre-op diagnosis: Dysphagia, Screening Post-op diagnosis: other (Hiatal hernia, Diverticulosis) Procedure: EGD with biopsies, Colonoscopy to the cecum Surgeon: Kike Caldera MD Anesthesia: MAC Was an Cyber Security Systems Engineer used for this Procedure?: No Estimated blood loss (mL): 2.0 Pathology: other (A. EG Junction at 33cm) Condition: stable Disposition: PACU
[2023-02-22 08:55] VITALS: BP 105/71; PULSE 74; RESP 18; TEMP 36.3; O2SAT 99
[2023-02-22 09:10] VITALS: BP 103/72; PULSE 61; RESP 16; TEMP 36.1; O2SAT 100
--- NOTE | 2023-02-22 09:36 | OP_ITS ---
DATE OF SERVICE: 02/22/2023 SURGEON: Kike Caldera MD INDICATIONS: The patient presents for evaluation of colorectal cancer screening and an occasional sense of dysphagia. Full consent obtained from her for this, including risks of bleeding and perforation. PREOPERATIVE DIAGNOSIS: POSTOPERATIVE DIAGNOSIS: PROCEDURE PERFORMED: ESTIMATED BLOOD LOSS: COMPLICATIONS: ANESTHESIA: Monitored anesthesia care. ASSISTANTS: SPECIMENS: PREOPERATIVE DIAGNOSES: Colorectal cancer screening and dysphagia. POSTOPERATIVE DIAGNOSES: Colorectal cancer screening and dysphagia, hiatal hernia, rule out Miller's esophagus, submucosal esophageal lesions, colon lipoma, diverticulosis, internal hemorrhoids. PROCEDURES PERFORMED: Esophagogastroduodenoscopy with biopsies, and colonoscopy to the cecum. DESCRIPTION OF PROCEDURE: The patient was placed in the left lateral decubitus position. The Olympus video gastroscope was passed in the posterior oropharynx and upper esophagus under direct vision. The scope was passed slowly into the distal esophagus. The gastroesophageal junction appeared at 33 cm. There was some slight irregularity, but no evidence of any esophagitis, lesions, nor stricture. The scope entered the stomach easily. There was a moderate-sized hiatal hernia. The scope was advanced to pylorus and the duodenum was cannulated to the descending portion. The duodenum including the bulb appeared normal without mass or ulceration. The scope was withdrawn back to the stomach. The gastric antrum and body appeared normal with good peristalsis. The scope was retroflexed visualizing the proximal stomach carefully which appeared normal, without any sign of mass or ulceration. Scope was straightened and withdrawn back to the esophagus. Biopsies were obtained at the EG junction at 33 cm. The scope was then withdrawn through the remainder of the esophagus. Between 28 cm and the gastroesophageal junction, there were 2 soft submucosal lesions with normal overlying mucosa. They were quite soft when probed with a biopsy forceps. Biopsies were not obtained. The proximal esophagus appeared normal otherwise without any esophageal rings. The scope was withdrawn from the patient. She was turned around for colonoscopy. The digital rectal exam revealed no abnormalities. The sphincter tone seemed normal. The Olympus video pediatric colonoscope was entered into the rectum, advanced easily to the cecum. Once in the cecum, I did identify normal-appearing cecal pouch with appendiceal orifice and a normal-appearing ileocecal valve. There was transillumination of light deep in the right lower quadrant. The entire cecum and ileocecal valve appeared normal. The scope was slowly withdrawn assessing all mucosal surfaces carefully. Preparation was excellent. I did not visualize any sign of polyps, colitis, or angiodysplasia. There was a lipoma in the transverse colon, which was quite soft and had normal overlying mucosa. There was a moderate amount of sigmoid diverticulosis. In the rectum, scope was retroflexed visualizing small internal hemorrhoids, but no other pathology. The rectal mucosa appeared normal. The scope was straightened and withdrawn from the patient. She tolerated the procedures well and was returned to recovery area in stable condition. IMPRESSION: 1. Hiatal hernia, rule out Miller's esophagus. 2. Submucosal esophageal lesions with normal overlying mucosa consistent with either a lipoma or lieomyoma. I do not think they are clinically significant. 3. Diverticulosis. 4. Colon lipoma. 5. Internal hemorrhoids. PLAN: Given the negative colonoscopy, I would recommend a followup coloscopy in 10 years for further screening. While she does have a hiatal hernia, she is not having any symptomatic reflux and therefore I would hold off on treatment of any acid reflux at this time. If there happens to be a small area of Miller's esophagus without dysplasia, I would recommend a repeat upper endoscopy in 3 years. She will otherwise see me on a p.r.n. basis. MD ALEJANDRO Owens/LISSETTE / [id number] MTDHussein
== END 2023-02-22 09:54 | disposition home or self-care (01) ==
PROVIDERS: PCP Internal Medicine; Visit Provider Internal Medicine
PROC: (CPT 45378; principal; 2023-02-22 07:30)
DX: Z12.11 Encounter for screening for malignant neoplasm of colon (principal); D17.5 Benign lipomatous neoplasm of intra-abdominal organs; K57.30 Diverticulosis of large intestine without perforation or abscess without bleeding; K64.8 Other hemorrhoids; R13.14 Dysphagia, pharyngoesophageal phase; K44.9 Diaphragmatic hernia without obstruction or gangrene; K21.9 Gastro-esophageal reflux disease without esophagitis
CPT/HCPCS: 45378; 43239; 88305

== ENCOUNTER 2023-06-30 07:36 | Outpatient (REF) | payer OTHER, SELFPAY | END 2023-06-30 07:37 | disposition home or self-care (01) | LOC: HO.MAMMO 07:36 | PROVIDERS: PCP Internal Medicine; Visit Provider Internal Medicine | DX: Z12.31 Encounter for screening mammogram for malignant neoplasm of breast (principal) | CPT/HCPCS: 77063; 77067 ==

== ENCOUNTER → 2023-06-30 07:45 | Outpatient (BNV) | payer OTHER, SELFPAY | PROVIDERS: PCP Internal Medicine; Visit Provider Radiology Diagnostic Radiology | DX: Z12.31 Encounter for screening mammogram for malignant neoplasm of breast (principal) | CPT/HCPCS: 77063; 77067 ==

== ENCOUNTER 2023-08-29 16:30 | Outpatient (REF) | payer OTHER, SELFPAY ==
--- NOTE | ~2023-08-29 | CT_ITS ---
EXAMINATION: CT CHEST SCREENING CLINICAL INFORMATION: Nicotine dependence, cigarettes, uncomplicated. The patient is a current smoker with a 36 pack-year history of smoking. COMPARISON: CT chest 07/28/2022, x-ray chest 05/16/2022. TECHNIQUE: Multidetector volumetric CT imaging of the chest is performed on a Siemens SOMATOM Definition scanner without contrast using low dose technique. Additional 2D coronal and sagittal reformatted images and axial 3D maximum intensity projection (MIP) images are generated on the CT workstation. This CT examination was performed using dose optimization techniques as appropriate, variously including the following: *Automated exposure control *Adjustment of mA and/or kV according to patient size (this includes techniques or standardized protocols for targeted exams where dose is matched to indication/reason for exam; i.e. extremities or head) *Use of iterative reconstruction technique DLP: 71 mGy-cm FINDINGS: LUNGS: Moderate emphysematous changes are seen along with bronchial thickening. There is a 3 mm right lateral tracheal nodule that most likely represents adherent mucus although no air is seen within this. Scattered punctate nodules are seen, none larger than 4 mm, and telles images of all have been saved (for example right upper lobe 4:123 compare prior 5:104). There is a completely new area of slightly lobular plate-like scarring in the right upper lobe abutting the paraspinal region measuring 1.3 x 0.4 x 2.7 cm (4:104 and telles images). MEDIASTINUM: The mediastinum is normal. CORONARY ARTERY CALCIFICATION: None visualized on this study. PLEURA: There is no pleural effusion. No pleural mass or thickening. AXILLA: No lymphadenopathy. UPPER ABDOMEN: Unremarkable. OSSEOUS STRUCTURES: Unremarkable. CT/CT lung screening IMPRESSION: 1. Moderate emphysema. 2. New plate-like lobular scarring right upper lobe, probably benign but 6-month interval follow up recommended (see below). 3 mm right lateral tracheal nodule not present previously is considered suspicious 3. Other scattered punctate nodules are seen, none larger than 4 mm. ASSESSMENT: Lung-RADS category 4A: Suspicious. RECOMMENDATION: Short interval 3 month follow up low-dose CT chest.
== END 2023-08-29 16:31 | disposition home or self-care (01) ==
LOC: HO.CT 16:30
PROVIDERS: PCP Internal Medicine; Visit Provider Nurse Practitioner Family
DX: Z12.2 Encounter for screening for malignant neoplasm of respiratory organs (principal); F17.210 Nicotine dependence, cigarettes, uncomplicated
CPT/HCPCS: 71271

== ENCOUNTER 2023-10-16 13:32 | Outpatient (AMB) | payer OTHER, SELFPAY ==
[2023-10-16 13:36] VITALS: BP 98/62; PULSE 87; O2SAT 97; BMI 24.6
--- NOTE | 2023-10-16 13:36 | A.OFFVIS_ITS ---
Vital Signs 10/16/23 13:36 Height 5 ft 2.5 in Weight 136 lb 10.986 oz BMI 24.6 BP 98/62 Blood Pressure Location Rt brachial Position Sitting Pulse 87 Pulse Source Doppler Pulse Oximetry (%) 97 Oxygen Delivery Method Room Air Intake Visit Reasons: Solitary pulmonary nodule Allergies No Known Allergies Allergy (Verified 10/16/23 13:38) HPI HPI Solitary pulmonary nodule: Details: 52-year-old lady, recent 30+ pack-year smoker, quit 2 months prior referred from lung cancer screening program for follow-up on multiple bilateral pulmonary nodules. Initial plan was to obtain PET, however it was denied by insurance. On read discussing patient's case, consensus was to repeat CT chest 3 months from the index one, now scheduled for November of 2023. Patient denies any pulmonary related concerns or complaints otherwise. She does have history of childhood asthma that resolved by her 20s. Patient also has family history of lung cancer in her grandmother. [facility] Medical History (Updated 09/06/23 @ 13:39 by Sana Veliz PA-C) Marijuana smoker Nicotine dependence, cigarettes, uncomplicated Vitamin D deficiency Pituitary adenoma Hypercholesteremia Surgical History History of wisdom tooth extraction Social History (Updated 10/16/23 @ 13:39 by DAVID Worley) Patient Tobacco Use Status: Current everyday Tobacco user Tobacco use type: Cigarette Cigarettes Per Day: 5 Years Smoked: (current smoker, onset 14, x 37yrs, mainly 1ppd, now 1/4ppd - 30pyh) Review of Systems Const Denies daytime sleepiness, Denies excessive sweating, Denies fatigue, Denies fever(s), Denies lethargy, Denies malaise, Denies night sweats, Denies snoring and Denies weight loss Eyes Denies blurry vision and Denies itchy eyes ENT Denies nasal congestion, Denies post nasal drip, Denies sinus pain, Denies sinus pressure and Denies other ( Thrush) Card Denies chest pain, Denies pedal edema, Denies dyspnea, Denies orthopnea and Denies paroxysmal nocturnal dyspnea Resp Denies cough, Denies hemoptysis, Denies excessive phlegm production, Denies dyspnea, Denies snoring and Denies wheezing GI Denies abdominal pain and Denies heartburn Musc Denies myalgias, Denies arthralgias and Denies joint swelling Skin/Breast Denies rash Neuro Denies memory loss and Denies seizure-like activity Psych Denies abnormal sleep pattern, Denies anxiety and Denies memory loss Endo Denies excessive sweating, Denies fatigue and Denies heat intolerance Gagandeep/Lymph Denies easy bruising Aller/Immun Denies itchy eyes, Denies seasonal rhinorrhea and Denies wheezing Physical Exam Vital Signs: Last Vital Signs Pulse 87 10/16/23 13:36 BP 98/62 10/16/23 13:36 Pulse Ox 97 10/16/23 13:36 Oxygen Delivery Method Room Air 10/16/23 13:36 BMI result Body Mass Index 24.6 Const General: no acute distress and alert Nutritional Appearance: not obese Orientation/consciousness: Other orientation findings ( oriented) HEENT Head: Yes atraumatic Eyes General: appearance normal, both eyes and all related structures Sclerae: sclerae normal EOM: EOMs intact bilaterally Neck Neck: Yes supple Lymphatic: no lymphadenopathy noted Resp Effort & Inspection: normal respiratory effort and no use of accessory muscles Auscultation: clear to auscultation bilaterally Cardio Rate: regular rate Rhythm: regular rhythm Heart sounds: no gallops, no murmurs and no rubs Skin General skin exam: other ( warm) Extrem General: No clubbing, No cyanosis and No edema Assessment & Plan Assessment & Plan (1) Right upper lobe pulmonary nodule: Comment: (plate-like scarring in RUL 1.3 x 0.4 x 2.7cm - on 08/29/23 LDCT) Code(s): R91.1 - Solitary pulmonary nodule Category: Medical Plan: Will repeat CT chest in November of 2023. Orders: Orders CT chest wo IV con 12/06/23 R91.1 - Solitary pulmonary nodule Coding Level of Care Code New Pt Level 3 (55988) Diagnoses Right upper lobe pulmonary nodule R91.1
== END 2023-10-16 13:57 | disposition home or self-care (01) ==
PROVIDERS: PCP Internal Medicine; Visit Provider Internal Medicine Pulmonary Disease
DX: R91.1 Solitary pulmonary nodule (principal)
CPT/HCPCS: 99203

== ENCOUNTER → 2023-10-16 13:32 | Outpatient (BNVA) | payer OTHER, SELFPAY | PROVIDERS: PCP Internal Medicine; Visit Provider Internal Medicine Pulmonary Disease ==

== ENCOUNTER 2023-12-03 07:32 | Outpatient (REF) | payer OTHER, SELFPAY ==
--- NOTE | ~2023-12-03 | CT_ITS ---
EXAMINATION: CT CHEST WITHOUT CONTRAST CLINICAL INFORMATION: Solitary pulmonary nodule. COMPARISON: CT chest dated 08/29/2023. TECHNIQUE: Multidetector volumetric CT imaging of the chest was done. Axial MIP volume rendering provided. Sagittal and coronal reformatted images were obtained. This CT examination was performed using dose optimization techniques as appropriate, variously including the following: *Automated exposure control *Adjustment of mA and/or kV according to patient size (this includes techniques or standardized protocols for targeted exams where dose is matched to indication/reason for exam; i.e. extremities or head) *Use of iterative reconstruction technique DLP: 108 mGy-cm FINDINGS: DIGITAL ASSET MANAGER: The lungs are symmetrically well expanded and grossly clear. LUNGS: There is mild centrilobular emphysematous change. There is a persistent triangular focus of pleural-based scarring at the medial right apex, which appears increased from prior. Current dimensions are 1.8 x 0.8 cm (5.98). A stable 3 mm nodule is seen within the superior segment of the right lower lobe. A stable 3 mm nodule is seen within the central left upper lobe. There are stable tiny right benign fissural lymph nodes. No mass, infiltrate or groundglass opacity is seen. There is mild bronchial wall thickening. The central airways are patent. The previously noted tiny right tracheal nodule is now resolved and in retrospect likely represented adherent mucus. MEDIASTINUM: The mediastinum is normal. CORONARY ARTERY CALCIFICATION: None visualized on this study. PLEURA: There is no pleural effusion. No pleural mass or thickening. AXILLA: No lymphadenopathy. UPPER ABDOMEN: Unremarkable. OSSEOUS STRUCTURES: Unremarkable. CT/CT chest wo IV con IMPRESSION: 1. An increased triangular focus of pleural-based probable scar is redemonstrated at the medial right apex. Given the interim increase in size, and this could be further evaluated with PET/CT. At a minimum, continued CT follow-up is recommended. There is no associated focal airway obstruction. 2. There are continued stable noncalcified 3 mm nodules within the right lower lobe and the left upper lobe. According to the UPDATED 2017 Fleischner Society recommendations, the advised follow-up imaging for solid nodules < 6 mm is: LOW RISK PATIENT: No routine follow-up. HIGH RISK PATIENT: Optional CT at 12 months. 3. There is mild centrilobular emphysematous change. 4. There is mild bronchial wall thickening, which may be infectious or inflammatory in etiology. 5. No thoracic lymphadenopathy or pleural effusion is seen. 6. Osseous structures are unremarkable. Fleischner guidelines were followed. Electronically signed by: Simeon Rosario MD 12/25/2023 12:45 PM EDT RP
== END 2023-12-03 07:33 | disposition home or self-care (01) ==
LOC: HO.CT 07:32
PROVIDERS: PCP Internal Medicine; Visit Provider Physician Assistant Medical
DX: R91.1 Solitary pulmonary nodule (principal)
CPT/HCPCS: 71250

== ENCOUNTER 2023-12-22 08:57 | Outpatient (REF) | payer OTHER, SELFPAY ==
--- NOTE | 2023-12-22 09:00 | PFT_ITS ---
Flows: FEV1: 91 % of predicted at 2.28 L FVC: 121 % of predicted at 3.79 L FEV1/FVC: 60 % Bronchodilator response: Present in small to medium airways only Volumes: Total lung capacity: 113 % of predicted at 5.43 L Residual volume: 112 % of predicted at 1.64 L Slow vital capacity: 112 % of predicted at 3.79 L Expiratory reserve volume: 67 % of predicted at 0.59 L Diffusion capacity: Normal Impression: Mild obstructive ventilatory defect with bronchodilator response in small to medium airways only. MTDD
== END 2023-12-22 08:58 | disposition home or self-care (01) ==
LOC: HO.RESP 08:57
PROVIDERS: PCP Internal Medicine; Visit Provider Internal Medicine Pulmonary Disease
DX: R91.1 Solitary pulmonary nodule (principal)
CPT/HCPCS: 94010; 94640; 94727; 94729

== ENCOUNTER 2023-12-27 13:30 | Outpatient (AMB) | payer OTHER, SELFPAY ==
[2023-12-27 13:32] VITALS: BP 102/62; PULSE 82; O2SAT 96; BMI 24.5
--- NOTE | 2023-12-27 13:32 | MHC.OFFVIS ---
Vital Signs 12/27/23 13:32 Height 5 ft 2.5 in Weight 136 lb BMI 24.5 BP 102/62 Blood Pressure Location Rt brachial Position Sitting Pulse 82 Pulse Source Doppler Pulse Oximetry (%) 96 Oxygen Delivery Method Room Air Intake Visit Reasons: Pulm Nodule/PFT & CT Follow Up Allergies No Known Allergies Allergy (Verified 10/16/23 13:38) HPI HPI Pulm Nodule/PFT & CT Follow Up: Details: 53-year-old lady, recent 30+ pack-year smoker, quit 2 months prior referred from lung cancer screening program for follow-up on multiple bilateral pulmonary nodules. Initial plan was to obtain PET, however it was denied by insurance. On discussing patient's case at tumor board, consensus was to repeat CT chest 3 months from the index one, now scheduled for November of 2023. Her follow-up CT scan showed increasing right apical density. Her CT chest showed underlying mild COPD. She denies any pulmonary related concerns or complaints. [facility] Medical History (Updated 12/27/23 @ 14:17 by Jj Alonzo MD) Marijuana smoker Nicotine dependence, cigarettes, uncomplicated Vitamin D deficiency Pituitary adenoma Hypercholesteremia Surgical History History of wisdom tooth extraction Social History (Updated 10/16/23 @ 13:39 by DAVID Worley) Patient Tobacco Use Status: Current everyday Tobacco user Tobacco use type: Cigarette Cigarettes Per Day: 5 Years Smoked: (current smoker, onset 14, x 37yrs, mainly 1ppd, now 1/4ppd - 30pyh) Review of Systems Const Denies daytime sleepiness, Denies excessive sweating, Denies fatigue, Denies fever(s), Denies lethargy, Denies malaise, Denies night sweats, Denies snoring and Denies weight loss Eyes Denies blurry vision and Denies itchy eyes ENT Denies nasal congestion, Denies post nasal drip, Denies sinus pain, Denies sinus pressure and Denies other ( Thrush) Card Denies chest pain, Denies pedal edema, Denies dyspnea, Denies orthopnea and Denies paroxysmal nocturnal dyspnea Resp Denies cough, Denies hemoptysis, Denies excessive phlegm production, Denies dyspnea, Denies snoring and Denies wheezing GI Denies abdominal pain and Denies heartburn Musc Denies myalgias, Denies arthralgias and Denies joint swelling Skin/Breast Denies rash Neuro Denies memory loss and Denies seizure-like activity Psych Denies abnormal sleep pattern, Denies anxiety and Denies memory loss Endo Denies excessive sweating, Denies fatigue and Denies heat intolerance Gagandeep/Lymph Denies easy bruising Aller/Immun Denies itchy eyes, Denies seasonal rhinorrhea and Denies wheezing Physical Exam Vital Signs: Last Vital Signs Pulse 82 12/27/23 13:32 BP 102/62 12/27/23 13:32 Pulse Ox 96 12/27/23 13:32 Oxygen Delivery Method Room Air 12/27/23 13:32 BMI result Body Mass Index 24.5 Const General: no acute distress and alert Nutritional Appearance: not obese Orientation/consciousness: Other orientation findings ( oriented) HEENT Head: Yes atraumatic Eyes General: appearance normal, both eyes and all related structures Sclerae: sclerae normal EOM: EOMs intact bilaterally Neck Neck: Yes supple Lymphatic: no lymphadenopathy noted Resp Effort & Inspection: normal respiratory effort and no use of accessory muscles Auscultation: clear to auscultation bilaterally Cardio Rate: regular rate Rhythm: regular rhythm Heart sounds: no gallops, no murmurs and no rubs Skin General skin exam: other ( warm) Extrem General: No clubbing, No cyanosis and No edema Assessment & Plan Assessment & Plan (1) Right upper lobe pulmonary nodule: Comment: (plate-like scarring in RUL 1.3 x 0.4 x 2.7cm - on 08/29/23 LDCT) Code(s): R91.1 - Solitary pulmonary nodule Category: Medical Plan: Results of follow-up CT chest from November of 2023 reviewed, increasing right apical nodule, will obtain transthoracic biopsy. (2) COPD (chronic obstructive pulmonary disease): Code(s): J44.9 - Chronic obstructive pulmonary disease, unspecified Category: Medical Plan: Results of pulmonary function test reviewed, underlying mild COPD that is essentially asymptomatic. Continue to monitor clinically. Orders: Orders CT biopsy lung RT Today R91.1 - Solitary pulmonary nodule Coding Level of Care Code Est Pt Level 4 (22590) Diagnoses Right upper lobe pulmonary nodule R91.1 COPD (chronic obstructive pulmonary disease) J44.9
== END 2023-12-27 13:53 | disposition home or self-care (01) ==
PROVIDERS: PCP Internal Medicine; Visit Provider Internal Medicine Pulmonary Disease
DX: R91.1 Solitary pulmonary nodule (principal); J44.9 Chronic obstructive pulmonary disease, unspecified
CPT/HCPCS: 99214

== ENCOUNTER → 2023-12-27 13:30 | Outpatient (BNVA) | payer OTHER, SELFPAY | PROVIDERS: PCP Internal Medicine; Visit Provider Internal Medicine Pulmonary Disease ==

== ENCOUNTER 2024-01-08 10:56 | Outpatient (AMB) | payer OTHER, SELFPAY ==
[2024-01-08 10:57] VITALS: BP 111/67; PULSE 98; O2SAT 98; BMI 24.8
--- NOTE | 2024-01-08 10:57 | A.OFFVIS_ITS ---
Vital Signs 01/08/24 10:57 Height 5 ft 2.5 in Weight 137 lb 12.623 oz BMI 24.8 BP 111/67 Blood Pressure Location Rt brachial Position Sitting Pulse 98 Pulse Source Doppler Pulse Oximetry (%) 98 Oxygen Delivery Method Room Air Intake Visit Reasons: Pulm Nodule/PFT & CT Follow Up Allergies No Known Allergies Allergy (Verified 01/08/24 11:02) HPI HPI Pulm Nodule/PFT & CT Follow Up: Details: 53-year-old lady, recent 30+ pack-year smoker, quit 2 months prior referred from lung cancer screening program for follow-up on multiple bilateral pulmonary nodules. Initial plan was to obtain PET, however it was denied by insurance. On discussing patient's case at tumor board, consensus was to repeat CT chest 3 months from the index one, now scheduled for November of 2023. Her follow-up CT scan showed increasing right apical density. Her CT chest showed underlying mild COPD. She denies any pulmonary related concerns or complaints. After the last office visit initially biopsy was planned, however patient opted to undergo PET testing instead that showed no significant FDG uptake. [facility] Medical History (Updated 12/27/23 @ 14:17 by Jj Alonzo MD) Marijuana smoker Nicotine dependence, cigarettes, uncomplicated Vitamin D deficiency Pituitary adenoma Hypercholesteremia Surgical History History of wisdom tooth extraction Social History Patient Tobacco Use Status: Current everyday Tobacco user Tobacco use type: Cigarette Cigarettes Per Day: 5 Years Smoked: (current smoker, onset 14, x 37yrs, mainly 1ppd, now 1/4ppd - 30pyh) Review of Systems Card Denies dyspnea and Denies dyspnea on exertion Resp Denies dyspnea and Denies dyspnea on exertion Physical Exam Vital Signs: Last Vital Signs Pulse 98 01/08/24 10:57 BP 111/67 01/08/24 10:57 Pulse Ox 98 01/08/24 10:57 Oxygen Delivery Method Room Air 01/08/24 10:57 BMI result Body Mass Index 24.8 Const General: no acute distress and alert Nutritional Appearance: not obese Orientation/consciousness: Other orientation findings ( oriented) HEENT Head: Yes atraumatic Eyes General: appearance normal, both eyes and all related structures Sclerae: sclerae normal EOM: EOMs intact bilaterally Neck Neck: Yes supple Lymphatic: no lymphadenopathy noted Cardio Rate: regular rate Rhythm: regular rhythm Heart sounds: no gallops, no murmurs and no rubs Skin General skin exam: other ( warm) Extrem General: No clubbing and No cyanosis Assessment & Plan Assessment & Plan (1) Right upper lobe pulmonary nodule: Comment: (plate-like scarring in RUL 1.3 x 0.4 x 2.7cm - on 08/29/23 LDCT) Code(s): R91.1 - Solitary pulmonary nodule Category: Medical Plan: Status post PET scan with no significant FDG uptake, less likely to be malignancy, especially an aggressive malignancy, thus watchful waiting approach is reasonable. Options for transthoracic biopsy, surgical resection, or follow- up with CT scan discussed with patient and family who at this time want to consider their options. At this time will proceed with 3 months follow-up CT chest, unless patient notifies of a different preference. (2) COPD (chronic obstructive pulmonary disease): Code(s): J44.9 - Chronic obstructive pulmonary disease, unspecified Category: Medical Plan: Clinically essentially asymptomatic. Continue to monitor clinically. Orders: Orders CT chest wo IV con 03/30/24 R91.1 - Solitary pulmonary nodule Coding Level of Care Code Est Pt Level 4 (85677) Complex EM visit Add On G2211 Diagnoses Right upper lobe pulmonary nodule R91.1 COPD (chronic obstructive pulmonary disease) J44.9
== END 2024-01-08 11:19 | disposition home or self-care (01) ==
PROVIDERS: PCP Internal Medicine; Visit Provider Internal Medicine Pulmonary Disease
DX: R91.1 Solitary pulmonary nodule (principal); J44.9 Chronic obstructive pulmonary disease, unspecified
CPT/HCPCS: 99214

== ENCOUNTER → 2024-01-08 10:56 | Outpatient (BNVA) | payer OTHER, SELFPAY | PROVIDERS: PCP Internal Medicine; Visit Provider Internal Medicine Pulmonary Disease ==

== ENCOUNTER 2024-03-25 15:24 | Outpatient (REF) | payer OTHER, SELFPAY | END 2024-03-25 15:25 | disposition home or self-care (01) | LOC: HO.CT 15:24 | PROVIDERS: PCP Internal Medicine; Visit Provider Internal Medicine Pulmonary Disease | DX: R91.1 Solitary pulmonary nodule (principal) | CPT/HCPCS: 71250 ==

== ENCOUNTER → 2024-03-25 15:25 | Outpatient (BNV) | payer OTHER, SELFPAY | PROVIDERS: PCP Internal Medicine; Visit Provider Radiology Diagnostic Radiology | DX: R91.1 Solitary pulmonary nodule (principal) | CPT/HCPCS: 71250 ==

== ENCOUNTER 2024-04-08 11:12 | Outpatient (AMB) | payer OTHER, SELFPAY ==
[2024-04-08 11:18] VITALS: BP 127/72; PULSE 89; O2SAT 96; BMI 26.4
--- NOTE | 2024-04-08 11:18 | MHC.OFFVIS ---
Vital Signs 04/08/24 11:18 Height 5 ft 2.5 in Weight 146 lb 9.718 oz BMI 26.4 BP 127/72 Blood Pressure Location Rt brachial Position Sitting Pulse 89 Pulse Source Doppler Pulse Oximetry (%) 96 Oxygen Delivery Method Room Air Intake Visit Reasons: Pulm Nodule Allergies No Known Allergies Allergy (Verified 01/08/24 11:02) HPI HPI Pulm Nodule: Details: 53-year-old lady, recent 30+ pack-year smoker, quit 2 months prior referred from lung cancer screening program for follow-up on multiple bilateral pulmonary nodules. Initial plan was to obtain PET, however it was denied by insurance. On discussing patient's case at tumor board, consensus was to repeat CT chest 3 months from the index one, now scheduled for November of 2023. Her follow-up CT scan showed increasing right apical density. Her CT chest showed underlying mild COPD. She denies any pulmonary related concerns or complaints. Initially biopsy was planned, however patient opted to undergo PET testing instead that showed no significant FDG uptake. After the last office visit patient had a follow-up CT scan at the end of February of 2024 with no official reading available for this visit, but on my review without significant changes from prior. [facility] Medical History (Updated 12/27/23 @ 14:17 by Jj Alonzo MD) Marijuana smoker Nicotine dependence, cigarettes, uncomplicated Vitamin D deficiency Pituitary adenoma Hypercholesteremia Surgical History History of wisdom tooth extraction Social History Patient Tobacco Use Status: Current everyday Tobacco user Tobacco use type: Cigarette Cigarettes Per Day: 5 Years Smoked: (current smoker, onset 14, x 37yrs, mainly 1ppd, now 1/4ppd - 30pyh) Review of Systems Const Denies weight loss Card Denies dyspnea and Denies dyspnea on exertion Resp Denies cough, Denies excessive phlegm production, Denies dyspnea, Denies dyspnea on exertion and Denies wheezing Aller/Immun Denies wheezing Physical Exam Vital Signs: Last Vital Signs Pulse 89 04/08/24 11:18 BP 127/72 04/08/24 11:18 Pulse Ox 96 04/08/24 11:18 Oxygen Delivery Method Room Air 04/08/24 11:18 BMI result Body Mass Index 26.4 Const General: no acute distress, alert and awake Eyes Sclerae: sclerae normal EOM: EOMs intact bilaterally Neck Neck: Yes no lymphadenopathy, Yes trachea midline and Yes supple Resp Effort & Inspection: normal respiratory effort and no respiratory distress Auscultation: clear to auscultation bilaterally Cardio Rate: regular rate Rhythm: regular rhythm Heart sounds: no gallops, no murmurs and no rubs GI Palpation (GI): Soft to palpation and Other GI palpation findings present ( Nontender) Auscultation: normal bowel sounds Extrem General: Yes no pedal edema, No clubbing and No cyanosis Assessment & Plan Assessment & Plan (1) Right upper lobe pulmonary nodule: Comment: (plate-like scarring in RUL 1.3 x 0.4 x 2.7cm - on 08/29/23 LDCT) Code(s): R91.1 - Solitary pulmonary nodule Category: Medical Plan: Results of 3 months follow-up CT scan not available for this visit. On my review no significant changes from prior. Will repeat CT scan in 6 months, ordered. (2) COPD (chronic obstructive pulmonary disease): Code(s): J44.9 - Chronic obstructive pulmonary disease, unspecified Category: Medical Plan: Clinically symptomatic. Continue to monitor. Orders: Orders CT chest wo IV con 09/21/24 R91.1 - Solitary pulmonary nodule Coding Level of Care Code Est Pt Level 4 (80975) Diagnoses Right upper lobe pulmonary nodule R91.1 COPD (chronic obstructive pulmonary disease) J44.9
--- OUTSIDE RECORDS SUMMARY | 2024-04-09 20:40 | XMS_ITS | Patient Health Record ---
Author Organization Kike Ellis DO, FACP Address [address] [place] [address] [phone] Care Team Providers Care Sand Caster Name Role Phone Kike Ellis Primary Care Provider ALLERGIES No Known Allergies RESULTS Component Value Reference Range Notes MM tomosynthesis screening B I Reviewed date:07/12/2023 04:22:53 PM Interpretation:Negative Performing Lab: Notes/Report: [address] [place] [address] Mammography Report Signed Patient: Greta Collazo MR#: [id number] [birth year] : 1970 Acct:[id number] Age/Sex: 52 / F ADM Date: 06/30/23 Loc: HO.MAMMO Attending Dr: Kike Ellis DO Ordering Physician: Kike Ellis DO Results: 1Negat daren Date of Service: 06/30/23 Follow Up: 1 Year From [facility] Mammogram Procedure(s): MM tomosynthesis screening BI Accession Number(s): [id number] cc: Kike Ellis DO EXAMINATION: MM SCREENING DIGITAL BREAST TOMOSYNTHESIS, BILATERAL CLINICAL INFORMATION: Screening. Asymptomatic. COMPARISON: Mammography: This study is compared with prior exams dating back to 2019. TECHNIQUE: Digital breast tomosynthesis is performed in both the craniocaudal and mediolateral oblique views along with computer-aided detection (CAD). Synthesized 2D images are generated from the tomosynthesis. FINDINGS: There are scattered areas of fibroglandular density (ACR BI-RADS breast composition Category b). There are no significant masses, abnormal calcifications, or other abnormalities. MM/MM tomosynthesis screening BI IMPRESSION: No mammographic evidence of malignancy. ASSESSMENT: BI-RADS BI-RADS 1 - Negative RECOMMENDATION: Routine annual mammography screening. 1 year F/U This examination should not preclude the clinical evaluation of a suspicious palpable abnormality. This patient's information was entered into a reminder system with a target due date for their next mammogram. Dictated By: Misty Valadez MD Signed By: <Electronically signed by Misty Valadez MD in OV> 07/12/23 0537 DD/ 0750 TD/TT: Supply Chain Assistant: CT lung screening Reviewed date:09/01/2023 10:34:21 AM Interpretation:Suspicious Performing Lab: Notes/Report: [address] [address] [address] Scan Report Signed Patient: Greta Collazo MR#: [id number] 68 : 1970 Acct:[id number] Age/Sex: 52 / F ADM Date: 08/29/23 Loc: HO.CT Attending Dr: Mindy Kirkland NP Ordering Physician: Mindy Kirkland NP Date of Service: 08/29/23 Procedure(s): CT lung screening Accession Number(s): [id number] cc: Kike Ellis DO; Mindy Kirkland NP EXAMINATION: CT CHEST SCREENING CLINICAL INFORMATION: Nicotine dependence, cigarettes, uncomplicated. The patient is a current smoker with a 36 pack-year history of smoking. COMPARISON: CT chest 07/28/2022, x-ray chest 05/16/2022. TECHNIQUE: Multidetector volumetric CT imaging of the chest is performed on a Siemens SOMATOM Definition scanner without contrast using low dose technique. Additional 2D coronal and sagittal reformatted images and axial 3D maximum intensity projection (MIP) images are generated on the CT workstation. This CT examination was performed using dose optimization techniques as appropriate, variously including the following: *Automated exposure control *Adjustment of mA and/or kV according to patient size (this includes techniques or standardized protocols for targeted exams where dose is matched to indication/reason for exam; i.e. extremities or head) *Use of iterative reconstruction technique DLP: 71 mGy-cm FINDINGS: LUNGS: Moderate emphysematous changes are seen along with bronchial thickening. There is a 3 mm right lateral tracheal nodule that most likely represents adherent mucus although no air is seen within this. Scattered punctate nodules are seen, none larger than 4 mm, and telles images of all have been saved (for example right upper lobe 4:123 compare prior 5:104). There is a completely new area of slightly lobular plate-like scarring in the right upper lobe abutting the paraspinal region measuring 1.3 x 0.4 x 2.7 cm (4:104 and telles images). MEDIASTINUM: The mediastinum is normal. CORONARY ARTERY CALCIFICATION: None visualized on this study. PLEURA: There is no pleural effusion. No pleural mass or thickening. AXILLA: No lymphadenopathy. UPPER ABDOMEN: Unremarkable. OSSEOUS STRUCTURES: Unremarkable. CT/CT lung screening IMPRESSION: 1. Moderate emphysema. 2. New plate-like lobular scarring right upper lobe, probably benign but 6-month interval follow up recommended (see below). 3 mm right lateral tracheal nodule not present previously is considered suspicious 3. Other scattered punctate nodules are seen, none larger than 4 mm. ASSESSMENT: Lung-RADS category 4A: Suspicious. RECOMMENDATION: Short interval 3 month follow up low-dose CT chest. Dictated By: Blane Marlow MD Signed By: <Electronically signed by Blane Marlow MD in OV> 09/01/23 1021 DD/ 1646 TD/TT: Supply Chain Assistant: SS CT chest wo con Reviewed date:12/25/2023 01:21:24 PM Interpretation:Abnormal Performing Lab: Notes/Report: [address] [address] [address] Scan Report Signed Patient: Greta Collazo MR#: [id number] [birth year] : 1970 Acct:[id number] Age/Sex: 52 / F ADM Date: 12/03/23 Loc: HO.CT Attending Dr: Sana Veliz PA-C Ordering Physician: Jj Alonzo MD Date of Service: 12/03/23 Procedure(s): CT chest wo IV con Accession Number(s): [id number] cc: Kike Ellis DO; Jj Alonzo MD EXAMINATION: CT CHEST WITHOUT CONTRAST CLINICAL INFORMATION: Solitary pulmonary nodule. COMPARISON: CT chest dated 08/29/2023. TECHNIQUE: Multidetector volumetric CT imaging of the chest was done. Axial MIP volume rendering provided. Sagittal and coronal reformatted images were obtained. This CT examination was performed using dose optimization techniques as appropriate, variously including the following: *Automated exposure control *Adjustment of mA and/or kV according to patient size (this includes techniques or standardized protocols for targeted exams where dose is matched to indication/reason for exam; i.e. extremities or head) *Use of iterative reconstruction technique DLP: 108 mGy-cm FINDINGS: RESPONDER: The lungs are symmetrically well expanded and grossly clear. LUNGS: There is mild centrilobular emphysematous change. There is a persistent triangular focus of pleural-based scarring at the medial right apex, which appears increased from prior. Current dimensions are 1.8 x 0.8 cm (5.98). A stable 3 mm nodule is seen within the superior segment of the right lower lobe. A stable 3 mm nodule is seen within the central left upper lobe. There are stable tiny right benign fissural lymph nodes. No mass, infiltrate or groundglass opacity is seen. There is mild bronchial wall thickening. The central airways are patent. The previously noted tiny right tracheal nodule is now resolved and in retrospect likely represented adherent mucus. MEDIASTINUM: The mediastinum is normal. CORONARY ARTERY CALCIFICATION: None visualized on this study. PLEURA: There is no pleural effusion. No pleural mass or thickening. AXILLA: No lymphadenopathy. UPPER ABDOMEN: Unremarkable. OSSEOUS STRUCTURES: Unremarkable. CT/CT chest wo IV con IMPRESSION: 1. An increased triangular focus of pleural-based probable scar is redemonstrated at the medial right apex. Given the interim increase in size, and this could be further evaluated with PET/CT. At a minimum, continued CT follow-up is recommended. There is no associated focal airway obstruction. 2. There are continued stable noncalcified 3 mm nodules within the right lower lobe and the left upper lobe. According to the UPDATED 2017 Fleischner Society recommendations, the advised follow-up imaging for solid nodules < 6 mm is: LOW RISK PATIENT: No routine follow-up. HIGH RISK PATIENT: Optional CT at 12 months. 3. There is mild centrilobular emphysematous change. 4. There is mild bronchial wall thickening, which may be infectious or inflammatory in etiology. 5. No thoracic lymphadenopathy or pleural effusion is seen. 6. Osseous structures are unremarkable. Fleischner guidelines were followed. Electronically signed by: Simeon Rosario MD 12/25/2023 12:45 PM EDT RP Workstation: [id number] Dictated By: Simeon Rosario MD Signed By: <Electronically signed by Simeon Rosario MD in OV> 12/25/23 1245 DD/ 0748 TD/TT: 12/03/23 0834 Supply Chain Assistant: KAYLIE REASON FOR REFERRAL No Information MEDICATIONS Medication SIG (Take, Route, Frequency, Duration) Notes Start Date End Date Status Vitamin D 50 MCG (1999) 1 capsule Ora lly Once a day 05/22/2022 Active buPROPion HCl ER (XL) 150 MG 1 tablet in the morning Orally Once a day Active LORazepam 0.5 MG 1 tablet at bedtime as needed Orally Once a day 01/29/2024 Active IMMUNIZATIONS Vaccine Route Administration Date Status Comme nts Td (adult) Unknown 12/29/2010 Administered COVID-19 Moderna Vaccine Unknown 09/02/2020 Administere d Influenza Quad Unknown 04/12/2022 Administered COVID-19 Moderna Vaccine Unknown 09/30/2020 Administere d MMR Unknown 01/21/2003 Administered COVID-19 Moderna Vaccine Unknown 04/16/2021 Administere d COVID-19 Moderna Bivalent Unknown 04/18/2022 Administer ed TDaP Unknown 02/23/2011 Administered TDaP Unknown 2022 Administered SOCIAL HISTORY Tobacco Use: Social History Observation Description Date Details (start date - stop date) Former Smoker NA - NA Sex Assigned At : Social History Observation Description Sex Assigned At Unknown Tobacco Use/Smoking Question Answer Notes Patient is a former smoker How long has it been since y ou last smoked? 3-6 months Additional Findings: Tobacco Non-User Cu rrent non-smoker, currently using no form of tobacco Alcohol Screen Question Answer Notes Did you have a drink containing alcohol in the p ast year? No Points 0 Interpretation Negative PROBLEMS Problem Type ICD Code Onset Dates Problem Status W/U Status Risk SNOMED Code Notes Problem Anxiety (F41.9) Active confirmed 295755 02 Problem Hypercholesterolemia (E78.00) Active confirmed 88161047 Problem Vitamin D deficiency (E55.9) Active confirmed 91657146 Problem Cigarette nicotine dependence without complication (F17.210) Active confirmed 01443393 Problem Lung nodule (R91.1) Active confirmed 78 6605447 VITAL SIGNS Blood pressure diastolic 60 mm Hg 02/26/2024 Height 61.25 in 02/26/2024 Blood pressure systolic 100 mm Hg 02/26/2024 Weight 144 lbs 02/26/2024 BMI 26.98 kg/m2 02/26/2024 Encounters Encounter Location Date Provider Diagnosis Kike Ellis DO, [address] [id number] 09/26/2023 Kike Ellis Left axillary pain M79.622 ; Vitamin D deficiency E55.9 and Anxiety F41.9 Kike Ellis DO, [address] [id number] 02/06/2024 Kike Ellis DO, [address] [id number] 02/26/2024 Kike Ellis Lung nodule R91.1 ; Anxiety F41.9 and Vitamin D deficiency E55.9 Kike Ellis DO, [address] [id number] 06/15/2023 Kike Ellis DO, [address] [id number] 06/15/2023 Kike Ellis DO, [address] [id number] 09/05/2023 Kike Ellis DO, [address] [id number] 12/28/2023 Kike Ellis DO, [address] [id number] 01/29/2024 Kike Ellis Anxiety F41.9 Kike Ellis DO, [address] [id number] 06/08/2023 Kike Ellis DO, [address] [id number] 06/15/2023 Kike Ellis Anxiety F41.9 and Vitamin D deficiency E55.9 Kike Ellis DO, [address] [id number] 12/14/2023 Kike Ellis DO, [address] [id number] 12/10/2023 Kike Ellis DO, [address] [id number] 12/28/2023 Kike Ellis ASSESSMENTS Encounter Date Diagnosis Assessment Notes Treatment Notes Treatment Clinical Notes 09/26/2023 Vitamin D deficiency (ICD-10 - E55.9) 09/26/2023 Left axillary pain (ICD-10 - M79.622) Tylenol as needed for pain. Will be seeing Pulmonology next month 02/26/2024 Anxiety (ICD-10 - F41.9) 02/26/2024 Lung nodule (ICD-10 - R91.1) PET scan was good. Follow up Chest CT scan will be in March. Follow up with Pulmonary after that. 01/29/2024 Anxiety (ICD-10 - F41.9) 06/15/2023 Vitamin D deficiency (ICD-10 - E55.9) 06/15/2023 Anxiety (ICD-10 - F41.9) Patient/Caregiver verbalizes understanding of medications side effects, interactions and warnings. 09/26/2023 Anxiety (ICD-10 - F41.9) 02/26/2024 Vitamin D deficiency (ICD-10 - E55.9) PLAN OF TREATMENT Pending Test Test Name Order Date Urinalysis 05/03/2022 Next Appt Details Provider Name:Kike Rodriguez maria del carmen, 08/27/2024 10:30:00 AM, [address] [place] [address], [place], [place], [phone], Insurance Providers Payer Name Payer Address Payer Phone Subscriber Number Group Number Insured Name Patient Relationship to Insured Coverage Start Date Coverage End Date [facility] [address] [place], [place] [id number] Greta Collazo Self - patient is the insured MEDICAL (GENERAL) HISTORY Medical History History ICD Code asthma - mild intermittent anxiety depression nicotine dependency pituitary adenoma hyperprolactinemia Hypercholesterolemia E78.00 Vitamin D deficiency E55.9 Lung nodule R91.1 Surgical History Surgery Date(Month/Year) wisdom teeth extraction
--- OUTSIDE RECORDS SUMMARY | 2024-04-09 20:40 | XMS_ITS ---
Author Organization Kike Ellis DO [facility] Address [address] [place] [phone] Care Team Providers Care Information Operator Name Role Phone Kike Ellis Primary Care Provider REASON FOR VISIT Refills MEDICATIONS Medication SIG (Take, Route, Fr equency, Duration) Notes Start Date End Date Status LORazepam 0.5 MG 1 tablet at bedtime as needed Orally Once a day for 30 days 01/29/2024 Ac tive Encounters Encounter Location Date Provider Diagnosis Kike Ellis DO [address] [phone] 01/29/2024 Kike Ellis Anxiety F41.9 ASSESSMENTS Encounter Date Diagnosis Assessment Notes Treatment Notes Treatment Clinical Notes 01/29/2024 Anxiety (ICD-10 - F41.9) PLAN OF TREATMENT Medication Medication Name Sig Start Date Stop Date Notes LORazepam 0.5 MG 1 tablet at bedtime as needed Orally Once a day for 30 days 01/29/2024 Next Appt Details Provider Name:Kike joyce, 08/27/2024 10:30:00 AM, [address] [place] [address], [phone],
--- OUTSIDE RECORDS SUMMARY | 2024-04-09 20:40 | XMS_ITS ---
Author Organization Kike Ellis DO [facility] Address [address] [place] [phone] Care Team Providers Care Building Rental Superintendent Name Role Phone Kike Ellis Primary Care Provider ALLERGIES No Known Allergies REASON FOR VISIT 2 month f/u, Follow up Lung nodule MEDICATIONS Medication SIG (Take, Route, Frequency, Duration) Notes Start Date End Date Status Vitamin D 50 MCG (1999) 1 capsule Ora lly Once a day 05/22/2022 Active buPROPion HCl ER (XL) 150 MG 1 tablet in the morning Orally Once a day Active LORazepam 0.5 MG 1 tablet at bedtime as needed Orally Once a day 01/29/2024 Active SOCIAL HISTORY Tobacco Use: Social History Observation [...] ast year? No Points 0 Interpretation Negative VITAL SIGNS BMI 26.98 kg/m2 02/26/2024 Blood pressure systolic 100 mm Hg 02/26/20 24 Blood pressure diastolic 60 mm Hg 024 Height 61.25 in 02/26/2024 Weight 144 lbs 02/26/2024 Encounters Encounter Location Date Provider Diagnosis Kike Ellis DO, [facility] [address] [place], [place] [phone] 02/26/2024 Kike Ellis Lung nodule R91.1 ; Anxiety F41.9 and Vitamin D deficiency E55.9 ASSESSMENTS Encounter Date Diagnosis Assessment Notes Treatment Notes Treatment Clinical Notes 02/26/2024 Lung nodule (ICD-10 - R91.1) PET scan was good. Follow up Chest CT scan will be in March. Follow up with Pulmonary after that. 02/26/2024 Anxiety (ICD-10 - F41.9) 02/26/2024 Vitamin D deficiency (ICD-10 - E55.9) PLAN OF TREATMENT Medication Medication Name Sig Start Date Stop Date Notes Vitamin D 50 MCG (1999 [place]) 1 capsule Orally Once a day buPROPion HCl ER (XL) 150 MG 1 tablet in the morning Orally Once a day LORazepam 0.5 MG 1 tablet at bedtime as needed Orally Once a day 01/29/2024 Treatment Notes Assessment Notes Lung nodule PET scan was good. F ollow up Chest CT scan will be in March. Follow up with Pulmonary after that. Next Appt Details Follow Up: 6 Months, Reason: follow up visit Provider Name:Kike joyce, 08/27/2024 10:30:00 AM, [address] [place] [address], [phone], Progress Notes * Examination Category Sub-Category Detail Notes General Examination GENERAL APPEARANCE: in no ac [place] distress, well developed, well nourished HEAD: normocephalic, atrau matic HEART: no murmurs, regular rate and rhythm, S1, S2 normal LUNGS: clear to auscultatio n bilaterally ABDOMEN: normal, bowel sounds present, soft, nontender, nondistended SKIN: warm and dry EXTREMITIES: no edema LYMPH NODES: PSYCH: alert, oriented, cog nitive function intact
--- OUTSIDE RECORDS SUMMARY | 2024-04-09 20:40 | XMS_ITS ---
Author Organization Kike Ellis DO, FACP Address [address] [place] [address] [phone] Care Team Providers Care Billing Clinician Name Role Phone Kike Ellis Primary Care Provider [phone] REASON FOR VISIT 2 month f/u Encounters Encounter Location Date Provider Diagnosis Kike Ellis DO, FACP [address] [place] [address] [phone] 02/06/2024 Kike Ellis PLAN OF TREATMENT Next Appt Details Provider Name:Kike joyce, 08/27/2024 10:30:00 AM, [address] [place] [address], [phone],
== END 2024-04-08 11:33 | disposition home or self-care (01) ==
PROVIDERS: PCP Internal Medicine; Visit Provider Internal Medicine Pulmonary Disease
DX: R91.1 Solitary pulmonary nodule (principal); J44.9 Chronic obstructive pulmonary disease, unspecified
CPT/HCPCS: 99214

== ENCOUNTER → 2024-04-08 11:12 | Outpatient (BNVA) | payer OTHER, SELFPAY | PROVIDERS: PCP Internal Medicine; Visit Provider Internal Medicine Pulmonary Disease ==

== ENCOUNTER 2024-06-18 15:30 | Outpatient (AMB) | payer OTHER, SELFPAY ==
--- NOTE | 2024-06-18 15:32 | MHC.PC.OV ---
Vital Signs 06/18/24 15:37 Height 5 ft 0.75 in Weight 140 lb BMI 26.7 BP 104/64 Blood Pressure Location Rt brachial Pulse 79 Pulse Source Pulse Oximeter Temp 97.4 F Pulse Oximetry (%) 97 Intake Visit Reasons: abdominal and leg pain Intake Note: had a mole under her left arm and now it's gone and it's a red spot and it's painful Allergies No Known Allergies Allergy (Verified 06/18/24 17:21) Medication List - Last Reconciled 06/18/24 by Karissa Coats PA-C bupropion HCl XL 150 mg PO QAM lorazepam 0.5 mg PO DAILY PRN PFSH Medical History History of mammogram (~07/12/21) Hyperprolactinemia Depression Asthma Former smoker Lower abdominal pain Generalized abdominal pain Marijuana smoker Nicotine dependence, cigarettes, uncomplicated Vitamin D deficiency Pituitary adenoma Hypercholesteremia Surgical History History of colonoscopy (~02/16/23) History of wisdom tooth extraction Social History Patient Tobacco Use Status: Current everyday Tobacco user Tobacco use type: Cigarette Cigarettes Per Day: 5 Years Smoked: (current smoker, onset 14, x 37yrs, mainly 1ppd, now 1/4ppd - 30pyh) Physical exam (Primary Care) Vital Signs: Last Vital Signs Temp 97.4 F 06/18/24 15:37 Pulse 79 06/18/24 15:37 BP 104/64 06/18/24 15:37 Pulse Ox 97 06/18/24 15:37 Care Plan Goal for BP management: 130/80 BMI result Body Mass Index 26.7 BMI Assessment/Plan discussion: High BMI High, discussed plan: lifestyle, weight reduction, dietary, physical activity and alcohol moderation Tobacco/Smoking Status: Tobacco use Status Patient Tobacco Use Status Current everyday Tobacco 06/18/24 15:34 Tobacco use type Cigarette 06/18/24 15:34 Coding Level of Care Code New Pt Level 5 (55810) Complex EM visit Add On G2211 Diagnoses Generalized abdominal pain R10.84 Lower abdominal pain R10.30 Pap smear for cervical cancer screening Z12.4 Hypercholesteremia E78.00 Pituitary adenoma D35.2 COPD (chronic obstructive pulmonary disease) J44.9 Right upper lobe pulmonary nodule R91.1 Vitamin D deficiency E55.9 Hyperprolactinemia E22.1 Depression F32.A Asthma J45.909 Former smoker Z87.891 Assessment & Plan Assessment & Plan (1) Generalized abdominal pain: Code(s): R10.84 - Generalized abdominal pain Category: Medical Plan: Patient with generalized lower abdominal pain. Will order outpatient labs, pelvic/transvaginal ultrasound, CT scan abdomen pelvis with IV contrast. Condition is chronic and stable continue to monitor. (2) Lower abdominal pain: Code(s): R10.30 - Lower abdominal pain, unspecified Category: Medical Plan: Patient with generalized lower abdominal pain. Will order outpatient labs, pelvic/transvaginal ultrasound, CT scan abdomen pelvis with IV contrast. Condition is chronic and stable continue to monitor. (3) Pap smear for cervical cancer screening: Code(s): Z12.4 - Encounter for screening for malignant neoplasm of cervix Category: Medical Plan: Patient has not had a Pap smear in many years. Will refer to animal keeper. (4) Hypercholesteremia: Code(s): E78.00 - Pure hypercholesterolemia, unspecified Category: Medical Plan: Patient currently on no medications for high cholesterol. The last time her cholesterol was obtained was 11/20/2022 and her LDL was 135. Her total cholesterol was 218. Her HDL was 65. Therefore over reassess labs this year and once labs return patient may need to be started back on a statin. Goal for LDL is less than 70. Go for total cholesterol is less than 200. Go for HDL is greater than 40. Condition is chronic and stable continue to monitor. (5) Pituitary adenoma: Code(s): D35.2 - Benign neoplasm of pituitary gland Category: Medical Plan: Condition is chronic and stable patient denies any neurological related complaints. Will continue to monitor. (6) COPD (chronic obstructive pulmonary disease): Code(s): J44.9 - Chronic obstructive pulmonary disease, unspecified Category: Medical Plan: Condition is chronic and stable patient denies any respiratory related complaints. Will continue to monitor. (7) Right upper lobe pulmonary nodule: Comment: (plate-like scarring in RUL 1.3 x 0.4 x 2.7cm - on 08/29/23 LDCT) Code(s): R91.1 - Solitary pulmonary nodule Category: Medical Plan: Patient had a CT scan of chest on 03/25/2024 which revealed stable tiny pulmonary nodules without new or enlarging nodule present. Stable focus of right medial apex scarring this is unchanged and benign. Mild centrilobular emphysema. No active lung disease. Mild thickening of the small airways subjective possibly chronic bronchitis. (8) Vitamin D deficiency: Code(s): E55.9 - Vitamin D deficiency, unspecified Category: Medical Plan: Patient's last labs her vitamin-D level was normal. Will reassess at patient's next fasting labs. Condition is chronic and stable continue to monitor. (9) Hyperprolactinemia: Code(s): E22.1 - Hyperprolactinemia Category: Medical Plan: Will reassess at next fasting labs. Condition is chronic and stable continue to monitor. (10) Depression: Code(s): F32.A - Depression, unspecified Category: Medical Plan: Patient currently on bupropion 150 mg daily and lorazepam 0.5 mg prn. Condition is chronic and stable continue to monitor. (11) Asthma: Code(s): J45.909 - Unspecified asthma, uncomplicated Category: Medical Plan: Condition is chronic and stable continue to monitor. (12) Former smoker: Comment: Patient quit August of 2023 Code(s): Z87.891 - Personal history of nicotine dependence Category: Social Hx Plan: Patient is a former smoker quit in August of 2023. Condition is stable will continue to monitor. Plan Plan - Order comprehensive blood work including CBC, CMP, CRP, Hemoglobin A1c, lipid panel, liver panel, magnesium, vitamin B1, thyroid function test, vitamin , and vitamin D levels. - Schedule CT scan of the abdomen and pelvis with IV contrast to assess for potential causes of abdominal pain. - Arrange an ultrasound of the pelvis and transvaginal ultrasound to evaluate the ovaries and cervix. - Refer for mammogram to investigate breast pain and potential tissue changes. - Encourage the patient to schedule with a special distribution clerk for routine Pap smears. Orders: Orders Complete Blood Count Auto Diff Today Z00.00 - Encounter for general adult medical examination without abnormal findings Comprehensive [place]. Panel Fast Today Z00.00 - Encounter for general adult medical examination without abnormal findings Hemoglobin A1c Today Z00.00 - Encounter for general adult medical examination without abnormal findings Lipid Panel Today Z00.00 - Encounter for general adult medical examination without abnormal findings Liver Panel Today Z00.00 - Encounter for general adult medical examination without abnormal findings Vitamin B12 and Folate Today Z00.00 - Encounter for general adult medical examination without abnormal findings TSH reflex Free T4 Today Z00.00 - Encounter for general adult medical examination without abnormal findings Prolactin Today E22.1 - Hyperprolactinemia C Reactive Protein Today Z00.00 - Encounter for general adult medical examination without abnormal findings Magnesium Today Z00.00 - Encounter for general adult medical examination without abnormal findings Vitamin B1 Today Z00.00 - Encounter for general adult medical examination without abnormal findings Vitamin D 25-OH Total Today Z00.00 - Encounter for general adult medical examination without abnormal findings CT abdomen pelvis w IV con Today R10.84 - Generalized abdominal pain US pelvic and transvaginal Today R10.30 - Lower abdominal pain, unspecified, R10.84 - Generalized abdominal pain Referrals COMMUNITY RELATIONS SPECIALIST Referral R10.30 - Lower abdominal pain, unspecified, R10.84 - Generalized abdominal pain, Z12.4 - Encounter for screening for malignant neoplasm of cervix Patient Instructions: Patient Instructions - Schedule and obtain fasting blood work at a convenient time. - Coordinate with radiology for CT scan and ultrasound appointments. - Arrange a mammogram as notified by the imaging center. - Consider resuming physical activity as tolerated and discuss stress management strategies. - Follow up with a special distribution clerk for routine Pap smear exams. - Return in one month to review results and adjust management as necessary. Scribe Plan - Not visible on output: History of Present Illness The patient is a 53-year-old female presenting with abdominal pain localized around the pubic bone and extending across the lower abdomen. The pain has been present intermittently for at least six months, with periods of intensity that prompted this visit. The patient recalls a fall last fall where she slipped and performed a split, which may have contributed to the symptom onset. She describes the pain as affecting mobility, particularly challenging during walking. There is no daily pain, but it was intense enough yesterday to seek medical attention today. Additional complaints include occasional pain in her left groin, potentially related to a previously bothersome lymph node. These symptoms are not continuous but sporadically present. The patient has experienced breast pain for at least a year, with a particular area of sensitivity around a previous mole site that radiates pain into the chest and under the arm. Her past medical history is significant for a lung nodule currently under surveillance. The patient did not report associated gastrointestinal symptoms such as significant changes in bowel movements, unexplained weight loss, or nausea and vomiting. There is some variability in stool appearance, suspected to be dietary due to spinach intake. She experiences no menstrual periods, having not menstruated for years. Social History - Engages in biking but has decreased activity due to weather - Quit smoking in August after discovering a lung nodule - Reports a significant weight gain believed to be related to decreased physical activity - History of stress and anxiety Review of Systems - Gastrointestinal: Denies nausea, vomiting, significant weight loss, or bloody stools - Urinary: Reports no issues with urination - Musculoskeletal: Reports history of a fall performing splits, with a potential connection to abdominal pain onset Physical Exam Appearance: Alert. Oriented X3. No acute distress. Head: Normal external exam. Normocephalic. Atraumatic. Eyes: Pupils are equal, round, and reactive to light. Extraocular movements intact. Conjunctiva and sclera normal. Eyelids normal. Ears: External auditory canal normal. Tympanic membranes normal. Throat: Pharynx normal. Uvula midline. Moist mucous membranes. Neck: Normal inspection. Neck supple. Full range of motion. No adenopathy. Thyroid Normal. No meningeal signs. No neck mass noted. Cardiovascular: Normal heart rate and rhythm. Heart sound normal. No murmurs noted. Pulses normal throughout. Respiratory: No respiratory distress. Painless inspiration. Breath sounds normal. No wheezes/rales/rhonchi noted. Chest nontender. No accessory muscle usage noted or decreased air movement noted. Abdomen: Soft and mild tenderness to the lower abdomen. There is no point tenderness. There is no rebound tenderness. Bowel sounds normal in all 4 quadrants. No distention noted. No organomegaly noted. No signs of trauma. Back: No costovertebral angle tenderness. Full range of motion noted. Skin: Skin warm and dry. Normal skin color. Normal skin turgor. No rashes/lesions/lacerations noted. Noted a red caren where a mole used to be, which is painful upon palpation. Extremities: No lower extremity edema. Extremities exhibit normal range of motion. Extremities nontender. Neuro: Oriented X 3. No motor deficit. No sensory deficit. Reflexes normal. Results - Imaging: Recent chest CT reviewed, showing no significant findings - Previous mammogram normal - Recent colonoscopy noted as normal Plan - Order comprehensive blood work including CBC, CMP, CRP, Hemoglobin A1c, lipid panel, liver panel, magnesium, vitamin B1, thyroid function test, vitamin , and vitamin D levels. - Schedule CT scan of the abdomen and pelvis with IV contrast to assess for potential causes of abdominal pain. - Arrange an ultrasound of the pelvis and transvaginal ultrasound to evaluate the ovaries and cervix. - Refer for mammogram to investigate breast pain and potential tissue changes. - Encourage the patient to schedule with a special distribution clerk for routine Pap smears. Patient was informed and verbally consented to the use of an ambient scribe for clinic note documentation during this visit. Discussion Notes During the visit, we discussed the management of the patient's abdominal pain and breast symptoms. I recommended a series of blood tests to evaluate overall health markers, which may provide insight into systemic issues. A CT scan with contrast for the abdomen and pelvis was advised to rule out abnormalities potentially causing her symptoms. I explained the purpose of a pelvic ultrasound to assess reproductive organs. A mammogram was advised to further investigate breast complaints, ensuring no underlying tissue changes contributing to her symptoms. We also reviewed her medications, including vitamin D supplementation, which was initiated for deficiency. I reiterated the importance of fasting before the blood work and outlined the next steps for scheduling imaging. We addressed the need for ongoing surveillance of the lung nodule, referencing recent clean imaging results. Patient Instructions - Schedule and obtain fasting blood work at a convenient time. - Coordinate with radiology for CT scan and ultrasound appointments. - Arrange a mammogram as notified by the imaging center. - Consider resuming physical activity as tolerated and discuss stress management strategies. - Follow up with a special distribution clerk for routine Pap smear exams. - Return in one month to review results and adjust management as necessary.
[2024-06-18 15:37] VITALS: BP 104/64; PULSE 79; TEMP 36.3; O2SAT 97; BMI 26.7
== END 2024-06-18 16:07 | disposition home or self-care (01) ==
LOC: HO.HMCSH 15:31
PROVIDERS: PCP Internal Medicine; Visit Provider Physician Assistant Medical
DX: J44.9 Chronic obstructive pulmonary disease, unspecified (principal); D35.2 Benign neoplasm of pituitary gland; E22.1 Hyperprolactinemia; R91.1 Solitary pulmonary nodule; R10.84 Generalized abdominal pain; R10.30 Lower abdominal pain, unspecified; E78.00 Pure hypercholesterolemia, unspecified; E55.9 Vitamin D deficiency, unspecified; F32.A Depression, unspecified; J45.909 Unspecified asthma, uncomplicated; Z87.891 Personal history of nicotine dependence

== ENCOUNTER 2024-06-28 10:51 | Outpatient (REF) | payer OTHER, SELFPAY ==
--- OUTSIDE RECORDS SUMMARY | 2024-06-28 10:53 | XMS_ITS | Encounter Summary ---
Author Organization [facility] Address [address] [place] [address] Care Team Providers Care Potato Chip Frier Name Role Phone Shana Santana DO Primary Care Pro vider Unavailable Crystal Taylor MD Primary Care Provider [phone] Encounter Details Date Type Department Care Team Description 07/14/2015 Lifestyle Coordinator Report Medical Records [address] [place] [id number] Gutierrez Haskins Social History Tobacco Use Types Packs/Day Years Used Date Smoking Tobacco: Heavy Smoker Cigarettes 1 25 Smokeless Tobacco: Former Alcohol Use Standard Drinks/Week Comments No 0 (1 standard drink = 0.6 oz pur e alcohol) Sex Assigned at Date Recorded Not on file documented as of this encounter Plan of Treatment Not on file documented as of this encounter Visit Diagnoses Not on filedocumented in this encounter Care Teams Potato Chip Frier Relationship Specialty Start Date End Date Shana Santana DO PCP - General Internal Medicine 01/05/15 08/15/21 Crystal Taylor MD [address] [place] [address] [id number] PCP - General Internal Medicine 08/16/21 documented as of this encounter
--- OUTSIDE RECORDS SUMMARY | 2024-06-28 10:53 | XMS_ITS ---
Author Organization [facility] Address [address] [place] [address] Care Team Providers Care Pediatric Occupational Therapist Name Role Phone Rhonda (RETIRED) Kike BLAKE Primary Care Provid er Unavailable Kike Caldera Unavailable [phone] Encounters Encounter Location Date Provider Diagnosis [facility] [address] [place] [address] 02/09/2023 Kike Caldera PLAN OF TREATMENT No Information
--- OUTSIDE RECORDS SUMMARY | 2024-06-28 10:54 | XMS_ITS | Encounter Summary ---
Author Organization [facility] Address [address] [place] [address] Care Team Providers Care Shellfish Harvester Name Role Phone Shana Santana DO Primary Care Pro vider Unavailable Crystal Taylor MD Primary Care Provider [phone] Encounter Details Date Type Department Care Team Description 01/11/2015 Release of Information Medical Records [address] [place] [address] Abstract, Provider Social History Tobacco Use Types Packs/Day Years Used Date Smoking Tobacco: Heavy Smoker Cigarettes 1 Smokeless Tobacco: Former Alcohol Use Standard Drinks/Week Comments No 0 (1 standard drink = 0.6 oz pur e alcohol) Sex Assigned at Date Recorded Not on file documented as of this encounter Plan of Treatment Not on file documented as of this encounter Visit Diagnoses Not on filedocumented in this encounter Care Teams Shellfish Harvester Relationship Specialty Start Date End Date Shana Santana DO PCP - General Internal Medicine 01/05/15 08/15/21 Crystal Taylor MD [address] [place] [id number] PCP - General Internal Medicine 08/16/21 documented as of this encounter
--- OUTSIDE RECORDS SUMMARY | 2024-06-28 10:54 | XMS_ITS | Encounter Summary ---
Author Organization [facility] Address [address] [place] [address] Care Team Providers Care Liquid Center Assembler Name Role Phone Shana Santana DO Primary Care Pro vider Unavailable Crystal Taylor MD Primary Care Provider [phone] Encounter Details Date Type Department Care Team Description 09/14/2015 Asphalt Paving Superintendent Report Medical Records [address] [place] [id number] Gutierrez Haskins Social History Tobacco Use Types [...] on filedocumented in this encounter Care Teams Liquid Center Assembler Relationship Specialty Start Date End Date Shana Santana DO PCP - General Internal Medicine 01/05/15 08/15/21 Crystal Taylor MD [address] [place] [address] [id number] PCP - General Internal Medicine 08/16/21 documented as of this encounter
--- OUTSIDE RECORDS SUMMARY | 2024-06-28 10:54 | XMS_ITS | Patient Health Record ---
Author Organization [facility] Address [address] [place] [address] Care Team Providers Care Rn Plasma Center Name Role Phone Rhonda (RETIRED) Kike BLAKE Primary Care Provid er Unavailable Kike Caldera Unavailable [phone] ALLERGIES No Known Allergies REASON FOR REFERRAL No Information MEDICATIONS Medication SIG (Take, Route, Frequency, Duration) Notes Start Date End Date Status Vitamin D Active SOCIAL HISTORY Tobacco Use: Social History Observation Description Date Details (start date - stop date) Current Smoker NA - NA Sex Assigned At : Social History Observation Description Sex Assigned At Unknown Tobacco Use/Smoking Question Answer Notes Patient is a current smoker How often do you smoke cigarettes? every day How many cigarettes a day do you smoke? 5 or les s Alcohol Screen Question Answer Notes Did you have a drink containing alcohol in the p ast year? No Points 0 Interpretation Negative PROBLEMS Problem Type ICD Code Onset Dates Problem Status W/U Status Risk SNOMED Code Notes Problem Colon cancer screening (Z12.11) Active confirmed 335330256 Problem Diverticulosis of large intestine without perforation or abscess without bleeding (K57.30) Active confirmed Diverticul ar disease of colon (070668103) Problem Dysphagia (R13.10) Active confirmed Dys phagia (45464377) Problem Pharyngoesophageal dysphagia (R13.14) Active confirmed 16098029 Problem Rectal discharge (R19.8) Active confirmed 590407569 PLAN OF TREATMENT Pending Test Test Name Order Date Pathology 02/22/2023 Future Test Test Name Order Date UPPER GI ENDOSCOPY 12/20/2022 COLONOSCOPY 12/20/2022 Insurance Providers Payer Name Payer Address Payer Phone Subscriber Number Group Number Insured Name Patient Relationship to Insured Coverage Start Date Coverage End Date [employer] [address] [place] ESCUDERO [phone] [id number] JENNIFER RONQUILLO Self - patient is the insured MEDICAL (GENERAL) HISTORY Medical History History ICD Code COPD Anxiety Depression Hyperprolactinemia Pituitary adenoma Neck pain Denies [place],DM,CVA,renal disease Surgical History Surgery Date(Month/Year) [place] teeth
--- OUTSIDE RECORDS SUMMARY | 2024-06-28 10:54 | XMS_ITS | Encounter Summary ---
Author Organization [facility] Address [address] [place] [address] Care Team Providers Care Agronomy Teacher Name Role Phone Shana Santana DO Primary Care Pro vider Unavailable Crystal Taylor MD Primary Care Provider [phone] Encounter Details Date Type Department Care Team Description 08/27/2015 Light Truck Driver Report Medical Records [address] [place] [id number] Raymon Villeda MD Social History Tobacco Use Types Packs/Day Years [...] on filedocumented in this encounter Care Teams Agronomy Teacher Relationship Specialty Start Date End Date Shana Santana DO PCP - General Internal Medicine 01/05/15 08/15/21 Crystal Taylor MD [address] [place] [address] [id number] PCP - General Internal Medicine 08/16/21 documented as of this encounter
--- OUTSIDE RECORDS SUMMARY | 2024-06-28 10:54 | XMS_ITS ---
Author Organization [facility] Address [address] [place] [address] Care Team Providers Care Ride Operator Name Role Phone Rhonda (RETIRED) Kike BLAKE Primary Care Provid er Unavailable Kike Caldera Unavailable [phone] REASON FOR VISIT screening,pharyngoesophgeal dysphagia PROBLEMS Problem Type ICD Code Onset Dates Problem Status W/U Status Risk SNOMED Code Notes Problem Diverticulosis of large intestine without perforation or abscess without bleeding (K57.30) Active confirmed Diverticul ar disease of colon (227073931) Problem Dysphagia (R13.10) Active confirmed Dys phagia (60805454) Encounters Encounter Location Date Provider Diagnosis [facility] [address] [place], [place] [id number] 02/22/2023 Kike Caldera Encounter for scre ening colonoscopy Z12.11 ; Lipoma of colon D17.5 ; Diverticulosis of large intestine without perforation or abscess without bleeding K57.30 ; Other hemorrhoids K64.8 ; Hiatal hernia K44.9 and Dysphagia R13.10 ASSESSMENTS Encounter Date Diagnosis Assessment Notes Treatment Notes Treatment Clinical Notes 02/22/2023 Encounter for screening colonoscopy (ICD-10 - Z12.11) 02/22/2023 Lipoma of colon (ICD-10 - D17.5) 02/22/2023 Diverticulosis of large intestine without perforation or abscess without bleeding (ICD-10 - K57.30) 02/22/2023 Other hemorrhoids (ICD-10 - K64.8) 02/22/2023 Hiatal hernia (ICD-1 0 - K44.9) 02/22/2023 Dysphagia (ICD-10 - R13.10) PLAN OF TREATMENT No Information
--- OUTSIDE RECORDS SUMMARY | 2024-06-28 10:54 | XMS_ITS | Encounter Summary ---
Author Organization [facility] Address [address] [place] [address] Care Team Providers Care Water Attendant Name Role Phone Shana Santana DO Primary Care Pro vider Unavailable Crystal Taylor MD Primary Care Provider [phone] Encounter Details Date Type Department Care Team Description 12/19/2019 Electrical Cad Designer Report Medical Records [address] [place] [address] Blane Toscano MD Social History Tobacco Use Types Packs/Day [...] on filedocumented in this encounter Care Teams Water Attendant Relationship Specialty Start Date End Date Shana Santana DO PCP - General Internal Medicine 01/05/15 08/15/21 Crystal Taylor MD [address] [place] [address] [id number] PCP - General Internal Medicine 08/16/21 documented as of this encounter
--- OUTSIDE RECORDS SUMMARY | 2024-06-28 10:54 | XMS_ITS ---
Author Organization [facility] Address [address] [place] [address] Care Team Providers Care Blocker And Polisher Name Role Phone Rhonda (RETIRED) Kike BLAKE Primary Care Provid er Unavailable Kike Caldera Unavailable [phone] REASON FOR VISIT screening,pharyngoesophageal dysphagia Encounters Encounter Location Date Provider Diagnosis [facility] Outpatient [address] [place], [place] [phone] 02/16/2023 Kike Caldera PLAN OF TREATMENT No Information
[2024-06-28 13:40] LABS: Basophils Percent Auto 0.8 % (0-2); Eosinophils Absolute Auto 0.1 X10*3/uL (0.0-0.4); Eosinophils Percent Auto 1.6 % (0-4); Hematocrit 39.9 % (37.0-47.0); Hemoglobin 13.6 g/dl (12.0-16.0); Imm Gran Abs Auto 0.01 X10*3/uL (0.00-0.03); Imm Gran Pct Auto 0.2 % (0.0-0.4); Lymphocytes Absolute Auto 1.6 X10*3/uL (1.2-4.9); Lymphocytes Percent Auto 31.8 % (20-40); MANUAL DIFF FLAG NO; Mean Corpuscular HGB Conc 34.1 g/dl (31.0-35.0); Mean Corpuscular Hemoglobin 31.1 pg (27.0-33.0); Mean Corpuscular Volume 91.1 fL (80.0-98.0); Mean Platelet Volume 9.8 fL (9.4-12.3); Monocytes Absolute Auto 0.3 X10*3/uL (0.1-1.2); Monocytes Percent Auto 5.3 % (2-11); Neutrophils Absolute Auto 3.1 x10*3/uL (2.0-8.3); Neutrophils Percent Auto 60.3 % (45-73); Platelet Count 365 X10*3/uL (160-400); Red Blood Count 4.38 X10*6/uL (4.20-5.50); Red Cell Distribution Width 12.5 % (11.0-16.0); White Blood Count 5.1 X10*3/uL (4.8-10.8)
[2024-06-28 13:50] LABS: Estimated Average Glucose 108 mg/dL; Hemoglobin A1C 128.2156 umol/L; Hemoglobin A1c % 5.4 % (<6.0); Total Hemoglobin (HGBA1C) 3578.4707 umol/L
[2024-06-28 13:59] LABS: Alanine Aminotransferase 29 U/L (0-31); Alkaline Phosphatase 58 U/L (39-117); Anion Gap 10 (12-20); Aspartate Amino Transferase 24 U/L (5-31); Bilirubin Direct 0.2 mg/dL (0.0-0.5); Bilirubin Total 0.5 mg/dL (0.0-1.0); Blood Urea Nitrogen 12 mg/dL (9-16); C Reactive Protein < 0.04 mg/dL (< or = 0.50); Calcium 9.3 mg/dL (8.4-10.2); Carbon Dioxide 27 mmol/L (22-29); Chloride 109 mmol/L (96-108); Cholesterol 240 mg/dL (<200); Estimated Glomerular Filt Rate > 60; Glucose Fasting 85 mg/dL (60-99); HDL Cholesterol 63 mg/dL (>40); LDL Cholesterol Calculated 154 mg/dL (<100); Magnesium 2.2 mg/dL (1.6-2.6); Sodium 142 mmol/L (135-145); Total Protein 6.8 g/dL (6.5-8.0); Triglycerides 119 mg/dL (<150)
[2024-06-28 14:27] LABS: Folate 15.4 ng/mL (> or = 4.0); Vitamin B12 572 pg/mL (200-900)
[2024-07-06 10:43] LABS: Vitamin B1 15 nmol/L (8-30)
== END 2024-06-28 10:52 | disposition home or self-care (01) ==
LOC: HO.HMGCLDS 10:51
PROVIDERS: PCP Internal Medicine; Visit Provider Physician Assistant Medical
DX: Z00.00 Encounter for general adult medical examination without abnormal findings (principal); E22.1 Hyperprolactinemia; Z13.220 Encounter for screening for lipoid disorders; Z13.228 Encounter for screening for other metabolic disorders; Z13.1 Encounter for screening for diabetes mellitus
CPT/HCPCS: 36415; 80053; 80061; 80076; 82248; 82306; 82607; 82746; 83036; 83735; 84146; 84425; 84443; 85025; 86140

== ENCOUNTER 2024-08-12 13:52 | Outpatient (REF) | payer OTHER, SELFPAY ==
--- NOTE | ~2024-08-12 | US_ITS ---
EXAMINATION: US PELVIS TRANSABDOMINAL AND TRANSVAGINAL HISTORY: R10.30 - Lower abdominal pain, unspecified COMPARISON: There are no prior studies for comparison. TECHNIQUE: Transabdominal and endovaginal real-time 2D garcia-scale ultrasound was performed. FINDINGS: Uterus: The uterus is normal in size, measuring 5.6 x 1.7 x 2.8 cm. Myometrium has a normal echotexture. There is a left sided fibroid measuring 7 x 7 x 8 mm. Endometrium: The endometrial stripe measures 3 mm in thickness. Right ovary: The right ovary measures 1.3 x 1.7 x 1.7 cm. The right ovary is normal in size and echotexture. Left ovary: The left ovary measures 1.0 x 1.7 x 1.1 cm. The left ovary is normal in size and echotexture. Pelvic fluid: none. US/US pelvic and transvaginal IMPRESSION: 7 x 7 x 8 mm left-sided uterine fibroid. Otherwise unremarkable pelvic ultrasound. Electronically signed by: Kike Mendes MD 08/13/2024 07:06 AM EDT
--- OUTSIDE RECORDS SUMMARY | 2024-08-12 17:05 | XMS_ITS | Encounter Summary ---
Author Organization [facility] Address [address] [place] [address] Care Team Providers Care Time Clock Inspector Name Role Phone Shana Santana DO Primary Care Pro vider Unavailable Crystal Taylor MD Primary Care Provider [phone] Encounter Details Date Type Department Care Team Description 08/13/2015 Store Group Manager Report Medical Records [address] [place] [address] Raymon Villeda MD Social History Tobacco Use [...] on filedocumented in this encounter Care Teams Time Clock Inspector Relationship Specialty Start Date End Date Shana Santana DO PCP - General Internal Medicine 01/05/15 08/15/21 Crystal Taylor MD [address] [place] [address] [id number] PCP - General Internal Medicine 08/16/21 documented as of this encounter
--- OUTSIDE RECORDS SUMMARY | 2024-08-12 17:05 | XMS_ITS ---
Author Organization [facility] Address [address] [place] [address] Care Team Providers Care Rehabilitation Worker Name Role Phone Rhonda (RETIRED) Kike BLAKE Primary Care Provid er Unavailable Kike Caldera Unavailable [phone] REASON FOR VISIT screening,pharyngoesophgeal dysphagia Problems Problem Type SNOMED Code ICD Code Onset Dates Problem Status W/U Status Risk Notes Problem Diverticular disease of colon (665847196) Diverticulosis of large intestine without perforation or abscess without bleeding (K57.30) Active confirmed Problem Dysphagia (73460036) Dysphagia (R13.10) Active confirmed Encounters Encounter Location Date Provider Diagnosis [facility] Outpatient [address] [place], [place] [phone] 02/22/2023 Kike Caldera Encounter for scre ening colonoscopy Z12.11 ; Lipoma of colon D17.5 ; Diverticulosis of large intestine without perforation or abscess without bleeding K57.30 ; Other hemorrhoids K64.8 ; Hiatal hernia K44.9 and Dysphagia R13.10 Assessments Encounter Date Diagnosis (ICD Code) Assessment Notes Treatment Notes Treatment Clinical Notes Section Notes 02/22/2023 Encounter for screening colonoscopy (ICD-10 - Z12.11) 02/22/2023 Lipoma of colon (ICD-10 - D17.5) 02/22/2023 Diverticulosis of large intestine without perforation or abscess without bleeding (ICD-10 - K57.30) 02/22/2023 Other hemorrhoids (ICD-10 - K64.8) 02/22/2023 Hiatal hernia (ICD-10 - K44.9) 02/22/2023 Dysphagia (ICD-10 - R13.10) Plan Of Treatment No Information Progress Notes * JENNIFER RONQUILLO BDOB: [birth year] (53 yo M)Acc No.[id number]:02/22/2023 EGD and COL/MAC Patient:?JENNIFER RONQUILLO Provider:?Kike Caldera MD :1970???Age:52 Y???Sex:Male Robin e:02/22/2023 Address:[address] [place], [place] [id number] Pcp:Kike Ellis (RETIRE D), DO Subjective: * Chief Complaints: * ???1. Screening,pharyngoesop hgeal dysphagia. * Medical History:? Objective: * Vitals:? Assessment: * Assessment: 1.?Encounter for screening c olonoscopy - Z12.11 (Primary)???2.?Lipoma of colon - D17.5???3.?Diverticulosis of large intestine without perforation or abscess without bleeding - K57.30???4.?Other hemorrhoids - K64.8???5. Hiatal hernia - K44.9???6.?Dysphagia - R13.10??? Plan: * Treatment: * Procedure Codes:?33694 DIAGN OSTIC COLONOSCOPY, 66218 UPPER GI ENDOSCOPY, BIOPSY * * The named appointment provid er may or may not be the originator of this progress note, and it is not deemed complete until electronically signed by the appointment provider. Sign off status: Pending * Provider:?Kike Caldera MD Date:? 023 Generated for Shana cheng/[place]/eTransmitting on:?08/12/2024 05:05 PM EDT
--- OUTSIDE RECORDS SUMMARY | 2024-08-12 17:05 | XMS_ITS ---
Author Organization [facility] Address [address] [place] [address] Care Team Providers Care Hostage Negotiator Name Role Phone Rhonda (RETIRED) Kike BLAKE Primary Care Provid er Unavailable Kike Caldera Unavailable [phone] REASON FOR VISIT screening,pharyngoesophageal dysphagia Encounters Encounter Location Date Provider Diagnosis [facility] Outpatient [address] [place], [place] [phone] 02/16/2023 Kike Caldera Plan Of Treatment No Information Progress Notes * JENNIFER RONQUILLO BDOB: [birth year] (53 yo M)Acc No.[id number]:02/16/2023 EGD and COL/MAC Patient:?JENNIFER RONQUILLO Provider:?Kike Caldera MD :1970???Age:52 Y???Sex:Male Robin e:02/16/2023 Address:[address] [place], [place] [id number] Pcp:Kike Ellis (RETIRE D), DO Subjective: * Chief Complaints: * ???1. Screening,pharyngoesop hageal dysphagia. * Medical History:? Objective: * Vitals:? Assessment: Plan: * Treatment: * * The named appointment provid er may or may not be the originator of this progress note, and it is not deemed complete until electronically signed by the appointment provider. Sign off status: Pending * Provider:?Kike Caldera MD Date:? 023 Generated for Printi ng/Faxing/eTransmitting on:?08/12/2024 05:05 PM EDT
--- OUTSIDE RECORDS SUMMARY | 2024-08-12 17:05 | XMS_ITS | Patient Health Record ---
Author Organization [facility] Address [address] [place] [address] Care Team Providers Care Printing Assistant Name Role Phone Rhonda (RETIRED) Kike BLAKE Primary Care Provid er Unavailable Kike Caldera Unavailable [phone] Allergies No Known Allergies Reason For Referral No Information Medications Medication SIG (Take, Route, Frequency, Duration) Notes Start Date End Date Status Vitamin D Active Social History Tobacco Use: Social History Observation Description Date Details (start date - stop date) Current Smoker NA - NA Tobacco Use/Smoking Question Answer Notes Patient is a current smoker How often do you smoke cigarettes? every day How many cigarettes a day do you smoke? 5 or les s Alcohol Screen Question Answer Notes Did you have a drink containing alcohol in the p ast year? No Points 0 Interpretation Negative Section Notes: Smoker 5 cigs QD; no alcohol Problems Problem Type SNOMED Code ICD Code Onset Dates Problem Status W/U Status Risk Notes Problem 520695215 Colon cancer screening (Z12.11) Active confirmed Problem Diverticular disease of colon (359261048) Diverticulosis of large intestine without perforation or abscess without bleeding (K57.30) Active confirmed Problem Dysphagia (13768378) Dysphagia (R13.10) Active confirmed Problem 68006359 Pharyngoesophage al dysphagia (R13.14) Active confirmed Problem 065819167 Rectal discharge (R19.8) Active confirmed Plan Of Treatment Pending Test Test Name Order Date Pathology 02/22/2023 Future Test Test Name Order Date UPPER GI ENDOSCOPY 12/20/2022 COLONOSCOPY 12/20/2022 Insurance Providers Payer Name Payer Address Payer Phone Subscriber Number Group Number Insured Name Patient Relationship to Insured Coverage Start Date Coverage End Date [employer] [address] [place] [phone] [id number] JENNIFER RONQUILLO Self - patient is the insured Medical (General) History Medical History History ICD Code COPD Anxiety Depression Hyperprolactinemia Pituitary adenoma Neck pain Denies SD,DM,CVA,renal disease Surgical History Surgery Date(Month/Year) [place] teeth
--- OUTSIDE RECORDS SUMMARY | 2024-08-12 17:05 | XMS_ITS | Encounter Summary ---
Author Organization [facility] Address [address] [place] [address] Care Team Providers Care Spiral Runner Name Role Phone Shana Santana DO Primary Care Pro vider Unavailable Crystal Taylor MD Primary Care Provider [phone] Reason for Visit * Reason Onset Date Comments My Chart Appointment 09/12/2018 Encounter Details Date Type Department Care Team Description 09/12/2018 Telephone Adult Medicine [address] [address] Shana Santana DO My Chart Appointment Social History Tobacco Use Types Packs/Day Years Used Date Smoking Tobacco: Heavy Smoker Cigarettes 1 25 Smokeless Tobacco: Former Alcohol Use Standard Drinks/Week Comments No 0 (1 standard drink = 0.6 oz pur e alcohol) Sex Assigned at Date Recorded Not on file documented as of this encounter Miscellaneous Notes * Telephone Encounter - Jaky Woodruff R.N. - 09/12/2018 9:12 AM EDT I left a message for the patient to return my call. * Telephone Encounter - Rama Segovia - 09/12/2018 9:03 AM EDT Patient has scheduled a visit through My Chart. Please call patient to triage for appropriateness. Date appointment is booked: 09/13/18 Appointment scheduled with Concepcion Sosa Reason for appointment: New Problem Visit Upper abdomen pain on right side. documented in this encounter Plan of Treatment Not on file documented as of this encounter Visit Diagnoses Not on filedocumented in this encounter Care Teams Spiral Runner Relationship Specialty Start Date End Date Shana Santana DO PCP - General Internal Medicine 01/05/15 08/15/21 Crystal Taylor MD [address] [place] [id number] PCP - General Internal Medicine 08/16/21 documented as of this encounter
--- OUTSIDE RECORDS SUMMARY | 2024-08-12 17:05 | XMS_ITS | Encounter Summary ---
Author Organization [facility] Address [address] [place] [address] Care Team Providers Care Automatic Teller Machine Servicer Name Role Phone Shana Santana DO Primary Care Pro vider Unavailable Crystal Taylor MD Primary Care Provider [phone] Encounter Details Date Type Department Care Team Description 07/14/2015 Boiler Shop Supervisor Report Medical Records [address] [place] [address] Gutierrez Haskins Social History Tobacco Use Types [...] on filedocumented in this encounter Care Teams Automatic Teller Machine Servicer Relationship Specialty Start Date End Date Shana Santana DO PCP - General Internal Medicine 01/05/15 08/15/21 Crystal Taylor MD [address] [place] [address] [phone] PCP - General Internal Medicine 08/16/21 documented as of this encounter
== END 2024-08-12 13:53 | disposition home or self-care (01) ==
LOC: HO.US 13:52
PROVIDERS: PCP Internal Medicine; Visit Provider Physician Assistant Medical
DX: R10.30 Lower abdominal pain, unspecified (principal); R10.84 Generalized abdominal pain
CPT/HCPCS: 76830; 76856

== ENCOUNTER → 2024-08-12 14:01 | Outpatient (BNV) | payer OTHER, SELFPAY | PROVIDERS: PCP Internal Medicine; Visit Provider Radiology Diagnostic Radiology | DX: D25.9 Leiomyoma of uterus, unspecified (principal) | CPT/HCPCS: 76830; 76856 ==

== ENCOUNTER 2024-08-13 14:06 | Outpatient (REF) | payer OTHER, SELFPAY ==
--- NOTE | ~2024-08-13 | CT_ITS ---
EXAMINATION: CT ABDOMEN PELVIS WITH IV CONTRAST HISTORY: R10.84 - Generalized abdominal pain COMPARISON: There are no prior studies for comparison. TECHNIQUE: CT scan of the abdomen and pelvis was performed following administration of 85 mL Omnipaque 350 using standard departmental protocol. Coronal and sagittal reformatted images were generated and reviewed. The patient received oral contrast material. This CT exam was performed with one or more of the following dose reduction techniques: automated exposure control, adjustment of the mA and/or kV according to patient size, use of iterative reconstruction technique. DLP: 370 mGy-cm FINDINGS: LOWER CHEST: The visualized lung bases are clear. There is no pleural effusion. CARDIOVASCULATURE: The heart is normal in size. There is no pericardial effusion. LIVER: The liver is normal in size and contour. No liver mass is identified. The hepatic and portal veins are patent. GALLBLADDER / BILE DUCTS: The gallbladder is unremarkable. There is no intra or extrahepatic biliary ductal dilatation. SPLEEN: The spleen is normal in size. No focal splenic lesion is identified. PANCREAS: The pancreas is unremarkable in appearance. ADRENAL GLANDS: Within normal limits. KIDNEYS/RETROPERITONEUM: No renal calculi are identified. There is no hydronephrosis. No renal masses are identified. LYMPH NODES: No abdominal or pelvic lymphadenopathy. VASCULATURE: The abdominal aorta is normal in caliber. MESENTERY/PERITONEUM: No free fluid. No masses. There is no free intraperitoneal gas. STOMACH: The stomach is unremarkable. SMALL BOWEL: The small bowel is normal in caliber. COLON: The colon is unremarkable. APPENDIX: Normal. URINARY BLADDER/PELVIC ORGANS: The urinary bladder is collapsed, limiting evaluation. The uterus is unremarkable. BONES / SOFT TISSUES: There is grade I spondylolisthesis of L5 on S1 with moderate associated degenerative disc disease. CT/CT abdomen pelvis w IV con IMPRESSION: Grade I spondylolisthesis of L5 on S1. Otherwise unremarkable contrast-enhanced CT of the abdomen and pelvis. Electronically signed by: Kike Mendes MD 08/14/2024 07:15 AM EDT
--- OUTSIDE RECORDS SUMMARY | 2024-08-13 16:51 | XMS_ITS | Encounter Summary ---
Author Organization [facility] Address [address] [place] [address] Care Team Providers Care Supervisor Self Service Store Name Role Phone Shana Santana DO Primary Care Pro vider Unavailable Crystal Taylor MD Primary Care Provider [phone] Encounter Details Date Type Department Care Team Description 06/08/2015 Co Founder And Director Report Medical Records [address] [place] [address] Gutierrez Haskins Social History Tobacco Use Types [...] on filedocumented in this encounter Care Teams Supervisor Self Service Store Relationship Specialty Start Date End Date Shana Santana DO PCP - General Internal Medicine 01/05/15 08/15/21 Crystal Taylor MD [address] [place] [address] [id number] PCP - General Internal Medicine 08/16/21 documented as of this encounter
--- OUTSIDE RECORDS SUMMARY | 2024-08-13 16:51 | XMS_ITS | Encounter Summary ---
Author Organization [facility] Address [address] [place] [address] Care Team Providers Care Agricultural Mechanic Name Role Phone Shana Santana DO Primary Care Pro vider Unavailable Crystal Taylor MD Primary Care Provider Encounter Details Date Type Department Care Team Description 08/27/2015 Buoy Tender Report Medical Records [address] [place] [address] Raymon Villeda MD Social History Tobacco Use [...] on filedocumented in this encounter Care Teams Agricultural Mechanic Relationship Specialty Start Date End Date Shana Santana DO PCP - General Internal Medicine 01/05/15 08/15/21 Crystal Taylor MD [address] [place] [address] [phone] PCP - General Internal Medicine 08/16/21 documented as of this encounter
--- OUTSIDE RECORDS SUMMARY | 2024-08-13 16:51 | XMS_ITS | Encounter Summary ---
Author Organization [facility] Address [address] [place] [address] Care Team Providers Care Audio Visual Aids Director Name Role Phone Shana Santana DO Primary Care Pro vider Unavailable Crystal Tyalor MD Primary Care Provider [phone] Encounter Details Date Type Department Care Team Description 12/19/2019 Director Biology Report Medical Records [address] [place] [address] Blane Toscano MD Social History Tobacco Use [...] on filedocumented in this encounter Care Teams Audio Visual Aids Director Relationship Specialty Start Date End Date Shana Santana DO PCP - General Internal Medicine 01/05/15 08/15/21 Crystal Taylor MD [address] [place] [address] [phone] PCP - General Internal Medicine 08/16/21 documented as of this encounter
--- OUTSIDE RECORDS SUMMARY | 2024-08-13 16:51 | XMS_ITS | Encounter Summary ---
Author Organization [facility] Address [address] [place] [address] Care Team Providers Care Textile Clothing And Footwear Mechanic Name Role Phone Shana Santana DO Primary Care Pro vider Unavailable Crystal Taylor MD Primary Care Provider [phone] Reason for Visit * Reason Onset Date Comments My Chart Appointment 09/12/2018 Encounter Details Date Type Department Care Team Description 09/12/2018 Telephone Adult Medicine [address] [address] Shana Santana DO My Chart Appointment Social [...] on filedocumented in this encounter Care Teams Textile Clothing And Footwear Mechanic Relationship Specialty Start Date End Date Shana Santana DO PCP - General Internal Medicine 01/05/15 08/15/21 Crystal Taylor MD [address] [place] [id number] PCP - General Internal Medicine 08/16/21 documented as of this encounter
[2024-08-13] MEDS: iohexoL 350 MG/ML 100 ML INFUS..BTL IV (17:11)
[2024-08-14 10:02] LABS: Creatinine POC 0.8 mg/dL (0.5-1.4); GFR POC > 60
== END 2024-08-13 14:07 | disposition home or self-care (01) ==
LOC: HO.CT 14:06
PROVIDERS: PCP Physician Assistant Medical; Visit Provider Physician Assistant Medical
DX: R10.84 Generalized abdominal pain (principal)
CPT/HCPCS: 74177; 82565; Q9967

== ENCOUNTER → 2024-08-13 14:44 | Outpatient (BNV) | payer OTHER, SELFPAY | PROVIDERS: PCP Physician Assistant Medical; Visit Provider Radiology Diagnostic Radiology | DX: R10.84 Generalized abdominal pain (principal) | CPT/HCPCS: 74177 ==

== ENCOUNTER 2024-08-20 11:30 | Outpatient (REF) | payer OTHER, SELFPAY ==
--- NOTE | ~2024-08-20 | US_ITS ---
EXAMINATION: MM DIAGNOSTIC DIGITAL BREAST TOMOSYNTHESIS, BILATERAL Lateral Limited ultrasound. CLINICAL INFORMATION: Bilateral breast pain. COMPARISON: Mammography: Comparison is made with relevant prior exams. TECHNIQUE: Digital breast mammography with tomosynthesis is performed in both the craniocaudal and mediolateral oblique views along with computer-aided detection (CAD). FINDINGS: There are scattered areas of fibroglandular density (ACR BI-RADS breast composition Category b). There are triangle markers at site of bilateral breast pain upper outer upper inner right breast and upper outer central inner left breast. There are no underlying abnormal findings. There are no significant masses, abnormal calcifications, or other abnormalities. Targeted color Doppler ultrasound scanning in the left breast areas of pain 9- 3:00 demonstrates normal fibroglandular breast tissue. Targeted color Doppler ultrasound scanning in the right breast areas of pain 10-3 o'clock demonstrates normal fibroglandular breast tissue. Results are provided to the patient at time of visit by the technologist. US/US breast BI limited mamm only IMPRESSION: No mammographic or sonographic abnormality bilateral breasts to correlate with the patient's bilateral areas of patient's pain. Recommend clinical evaluation and follow-up. ASSESSMENT: BI-RADS BI-RADS 1 - Negative RECOMMENDATION: 1 year F/U This patient's information was entered into a reminder system with a target due date for their next mammogram. Electronically signed by: Sonia Villareal DO 08/20/2024 12:58 PM EDT
== END 2024-08-20 11:31 | disposition home or self-care (01) ==
LOC: HO.MAMMO 11:30
PROVIDERS: PCP Internal Medicine; Visit Provider Physician Assistant Medical
DX: N64.4 Mastodynia (principal)
CPT/HCPCS: 76642; 77062; 77066

== ENCOUNTER → 2024-08-20 11:30 | Outpatient (BNV) | payer OTHER, SELFPAY | PROVIDERS: PCP Internal Medicine; Visit Provider Internal Medicine | DX: N64.4 Mastodynia (principal) | CPT/HCPCS: 76642; 77062; 77066 ==

== ENCOUNTER 2024-09-02 10:28 | Outpatient (AMB) | payer OTHER, SELFPAY ==
[2024-09-02 10:32] VITALS: BP 122/78; PULSE 91; TEMP 37.3; O2SAT 97; BMI 28.2
--- NOTE | 2024-09-02 10:32 | MHC.PC.OV ---
Vital Signs 09/02/24 10:32 Height 5 ft 0.75 in Weight 148 lb 0.8 oz BMI 28.2 BP 122/78 Blood Pressure Location Lt brachial Pulse 91 Pulse Source Pulse Oximeter Temp 99.1 F Pulse Oximetry (%) 97 Intake Visit Reasons: Bug bite Intake Note: bug bite on left ankel from two weeks ago seems to e getting worse it's itchy and painful when active. She also has some small spots on her right. Allergies No Known Allergies Allergy (Verified 09/02/24 11:15) Medication List - Last Reconciled 09/02/24 by Karissa Coats PA-C betamethasone dipropionate 0.05% 1 appl topical BID PRN bupropion HCl XL 150 mg PO QAM lorazepam 0.5 mg PO DAILY PRN HPI Bug bite HPI Details The patient is a 53-year-old female presenting with a rash due to suspected poison orquidea contact. She reported initial symptoms resembling bug bites, but the rash progressed while she was [place] in [place] Duration within two weeks included formation of vesicles with variable itching and aching, sometimes extending to the ankle. There is no history of significant pruritus initially associated with two small red spots. The patient?s attempts at self-treatment, including soaking the area, provided minimal relief. Rash episodes fluctuate with conditions such as heat exposure during bathing, which intensifies discomfort. Social History - Exercise: Walks dog in the [place]. - Housing/Environment: Walks frequently in wooded areas, indicating possible environmental exposure risk. FORMERLY [facility] Medical History (Updated 09/02/24 @ 11:18 by Karissa Coats PA-C) Contact dermatitis Breast pain History of mammogram (~07/12/21) Hyperprolactinemia Depression Asthma Former smoker Lower abdominal pain Generalized abdominal pain Marijuana smoker Nicotine dependence, cigarettes, uncomplicated Vitamin D deficiency Pituitary adenoma Hypercholesteremia Surgical History History of colonoscopy (~02/16/23) History of wisdom tooth extraction Social History Patient Tobacco Use Status: Current everyday Tobacco user Tobacco use type: Cigarette Cigarettes Per Day: 5 Years Smoked: (current smoker, onset 14, x 37yrs, mainly 1ppd, now 1/4ppd - 30pyh) Packs per year/per ci.00 Questionnaire PHQ-9 Over the last 2 weeks, how often have you been bothered by any of the following problems? 1. Little interest or pleasure in doing things: several days 2. Feeling down, depressed, or hopeless: several days 3. Trouble falling or staying asleep, or sleeping too much: several days 4. Feeling tired or having little energy: several days 5. Poor appetite or overeating: not at all 6. Feeling bad about yourself - or that you are a failure or have let yourself or your family down: several days 7. Trouble concentrating on things, such as reading the newspaper or watching television: not at all 8. Moving or speaking so slowly that other people could have noticed. Or the opposite - being so fidgety or restless that you have been moving around a lot more than usual: not at all 9. Thoughts that you would be better off or of hurting yourself in some way: not at all Total score: 5 Depression Screening Interpretation: Positive Depression Screening Follow-up: Existing condition and In treatment Depression Screening Done: Yes 21093 - PHQ-9 Billing: Yes Source: Developed by Drs. Kike Montes De Oca, Linette Levine, Lamont Danielson and colleagues, with an educational david from [employer]. Thrive Questionnaire Date Thrive assessed: 09/02/24 I am a: Patient What is your living situation today?: I have a steady place to live Within the past 12 months, did the food you bought not last and you didn't have the money to get more?: Never true Within the past 12 months, did you worry whether your food would run out before you got money to buy more?: Never true Do you have trouble paying for medicines?: No Do you have trouble getting transportation to medical appointments?: No Do you have trouble paying your heating and electricity bill?: No Do you have trouble taking care of your child, family member or friend?: No Do you have trouble with day-to-day activities such as bathing, preparing meals, shopping, managing finances, etc.?: No Are you currently unemployed and looking for a job?: No Are you interested in more education?: No Please select the resources that you would like help with: None THRIVE Score: 0 AUDIT C Alcohol Use Questionnaire (AUDIT-C) 1. How often do you have a drink containing alcohol?: Never 2. How many drinks containing alcohol do you have on a typical day when you are drinking?: 1 or 2 3. How often do you have six or more drinks on one occasion?: Never Total Score: 0 Score Reviewed/Action Taken: No KWAME-7 AMB Questionnaire KWAME-7 Date KWAME - 7 assessed: 09/02/24 Feeling nervous, anxious, or on edge: 2 = More than half the days Not being able to stop or control worryin = Several days Worrying too much about different things: 1 = Several days Trouble relaxin = Several days Being so restless that it is hard to sit still: 1 = Several days Becoming easily annoyed or irritable: 1 = Several days Feeling afraid as if something awful might happen: 1 = Several days Total KWAME-7 score (0-4 normal; 5-9 mild; 10-14 moderate; 15-21 severe): 8 Source: Developed by Drs. Kike Montes De Oca, Linette Levine, Lamont Danielson and colleagues, with an educational david from [employer]. KWAME-7 Assessment Billing KWAME-7 Assessment Tool: KWAME-7 Assessment 08554 Review of Systems Const Details: - Skin: Reports rash on the leg, initial small red dots, vesicular progression, intermittent itching, and aching; denies initial itching but reports change in symptoms based on activities. - Musculoskeletal: Reports aching radiating to ankle. Physical exam (Primary Care) Vital Signs: Last Vital Signs Temp 99.1 F 09/02/24 10:32 Pulse 91 09/02/24 10:32 BP 122/78 09/02/24 10:32 Pulse Ox 97 09/02/24 10:32 BMI result Body Mass Index 28.2 Tobacco/Smoking Status: Tobacco use Status Patient Tobacco Use Status Current everyday Tobacco 09/02/24 10:46 Tobacco use type Cigarette 09/02/24 10:46 PHQ-9: PHQ-9 Score PHQ-9: Total score 5 09/02/24 10:46 Depression Screening Interpretation: Positive Depression Screening Follow-up: Existing condition and In treatment Thrive Assessment: Date of Thrive Assessment Date Thrive assessed 09/02/24 09/02/24 10:46 Const Other: Appearance: Alert. Oriented X3. No acute distress. Head: Normal external exam. Normocephalic. Atraumatic. Eyes: Pupils are equal, round, and reactive to light. Extraocular movements intact. Conjunctiva and sclera normal. Eyelids normal. Throat: Pharynx normal. Uvula midline. Moist mucous membranes. Neck: Normal inspection. Neck supple. Full range of motion. Cardiovascular: Normal heart rate and rhythm. Respiratory: No respiratory distress. Painless inspiration. Back: No costovertebral angle tenderness. Full range of motion noted. Skin: Skin warm and dry. Normal skin color. Normal skin turgor. Notable for poison orquidea rash on the left leg, with vesicles and itching. No signs of infection or cellulitis. No additional rashes/lesions/lacerations noted Extremities: Extremities exhibit normal range of motion. Neuro: Oriented X 3. No motor deficit. No sensory deficit. Reflexes normal. Coding Level of Care Code Est Pt Level 3 (26446) Diagnoses Contact dermatitis L25.9 Additional Codes PHQ-9 - 83772 - PHQ-9 Billing: Yes ([id number]) KWAME-7 Assessment Billing - KWAME-7 Assessment Tool: KWAME-7 Assessment 83875 ([id number]) Assessment & Plan Assessment & Plan (1) Contact dermatitis: Code(s): L25.9 - Unspecified contact dermatitis, unspecified cause Category: Medical Plan: Topical steroids. Instructed patient to continue to monitor for advancing erythema. No evidence of cellulitis at this time. Condition is stable. Plan Plan Patient was informed and verbally consented to the use of an ambient scribe for clinic note documentation during this visit. 1. Contact Dermatitis Due To Poison Orquidea The patient is prescribed betamethasone topical steroid to reduce inflammation and itching from contact dermatitis attributed to poison orquidea. Application guidance and monitoring for infection signs were given. Continued hygiene maintenance advised. Re-evaluation recommended if symptoms worsen. I discussed with the patient that her skin findings are consistent with contact dermatitis due to poison orquidea. I explained that betamethasone, a topical steroid, will help alleviate inflammation and itching. We discussed that while the rash is not currently infected, signs of infection include spreading redness, and she should seek further evaluation if these occur. I assured her of the plan's effectiveness in preventing symptoms from worsening, emphasized refraining from scratching to prevent cellulitis, and she expressed understanding and agreement with the plan. Medications: New betamethasone dipropionate 0.05% 1 appl topical BID PRN 45 grams 1RF skin irritation Patient Instructions: - Apply the prescribed betamethasone cream to the rash as directed. - Continue to clean the area with mild soap and water. - Avoid scratching the affected area; use paper towel or soft object if necessary. - Monitor for signs of infection, such as increasing redness or spreading. - If symptoms worsen or signs of infection appear, return for further assessment. - Feel free to continue soaking the area as long as it does not irritate. - Follow the plan to reduce inflammation and prevent itching.
== END 2024-09-02 11:00 | disposition home or self-care (01) ==
LOC: HO.HMCSH 10:28
PROVIDERS: PCP Internal Medicine; Visit Provider Physician Assistant Medical
DX: L25.9 Unspecified contact dermatitis, unspecified cause (principal)

== ENCOUNTER → 2024-09-02 10:28 | Outpatient (BNVA) | payer OTHER, SELFPAY | PROVIDERS: PCP Internal Medicine; Visit Provider Physician Assistant Medical | DX: L23.7 Allergic contact dermatitis due to plants, except food (principal) | CPT/HCPCS: 96127 ==

== ENCOUNTER 2024-09-11 10:52 | Outpatient (REF) | payer OTHER, SELFPAY ==
--- OUTSIDE RECORDS SUMMARY | 2024-09-11 12:53 | XMS_ITS | Encounter Summary ---
Author Organization [facility] Address [address] [place] [address] Care Team Providers Care Adjunct Professor Of Voice Name Role Phone Shana Santana DO Primary Care Pro vider Unavailable Crystal Taylor MD Primary Care Provider [phone] Encounter Details Date Type Department Care Team Description 08/27/2015 Animal Nutrition Teacher Report Medical Records [address] [place] [id number] Raymon Villeda MD Social History Tobacco Use [...] on filedocumented in this encounter Care Teams Adjunct Professor Of Voice Relationship Specialty Start Date End Date Shana Santana DO PCP - General Internal Medicine 01/05/15 08/15/21 Crystal Taylor MD [address] [place] [address] [id number] PCP - General Internal Medicine 08/16/21 documented as of this encounter
--- OUTSIDE RECORDS SUMMARY | 2024-09-11 12:53 | XMS_ITS | Encounter Summary ---
Author Organization [facility] Address [address] [place] [address] Care Team Providers Care Network Support Analyst Name Role Phone Shana Santana DO Primary Care Pro vider Unavailable Crystal Taylor MD Primary Care Provider Encounter Details Date Type Department Care Team Description 07/14/2015 Men'S Designer Report Medical Records [address] [place] [id number] Gutierrez Haskins Social History Tobacco Use Types [...] on filedocumented in this encounter Care Teams Network Support Analyst Relationship Specialty Start Date End Date Shana Santana DO PCP - General Internal Medicine 01/05/15 08/15/21 Crystal Taylor MD [address] [place] [address] [phone] PCP - General Internal Medicine 08/16/21 documented as of this encounter
--- OUTSIDE RECORDS SUMMARY | 2024-09-11 12:53 | XMS_ITS | Clinical Summary ---
Author Organization [facility] Address [address] [place] [address] Care Team Providers Care Tobacco Drummer Name Role Phone Crystal Taylor MD Primary Care Provider [phone] Allergies No known active allergies Medications No known medications Active Problems Problem Noted Date Pulmonary emphysema 09/13/2018 Tobacco abuse 06/14/2018 Last Assessment & Plan: Encouraged continued efforts at cessation. Eczema 02/08/2015 Overview: Hands Depression 02/08/2015 Anxiety 02/08/2015 Last Assessment & Plan: Referred to Behavioral Health. SHAI Hinson SI. 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 Resolved Problems Problem Noted Date Resolved Date Abnormal CXR 06/14/2018 09/13/2018 Immunizations Name Administration Dates Next Due TD (STATE SUPPLIED FOR ADULTS AND CHILDREN) 04/2010 Family History Medical History Relation Name Comments CA Breast Aunt p 50s PATERNAL CA Ovarian Aunt p 50s ovarian cancer Aunt p 50s breast cancer with mets Asthma Father depression CA Colon Maternal Grandfather age 75 Cancer of the Bladder Maternal Grandmother bladder cancer Paternal Grandfather lymph linnea CA Lung Paternal Grandmother age 84 / kidney cancer Cancer of the Prostate Uncle mother's side Cancer of the Pancreas Negative Hx Uterine Cancer Negative Hx Relation Name Status Comments Aunt p 50s Father Alive Maternal Grandfather Maternal Grandmother Mother Alive Paternal Grandfather Paternal Grandmother Uncle mother's side Alive Social History Tobacco Use Types Packs/Day Years Used Date Smoking Tobacco: Heavy Smoker Cigarettes 1 25 Smokeless Tobacco: Former Alcohol Use Standard Drinks/Week Comments No 0 (1 standard drink = 0.6 oz pur e alcohol) Sex Assigned at Date Recorded Not on file Last Filed Vital Signs Vital Sign Reading Time Taken Comments Blood Pressure 102/68 08/05/2020 3:34 PM EDT Pulse 72 08/05/2020 3:34 PM EDT Temperature 36.8 ??C (98.2 ??F) 08/05/2020 3:34 PM ED T Respiratory Rate 16 08/05/2020 3:34 PM EDT Oxygen Saturation - - Inhaled Oxygen Concentration - - Weight 52.6 kg (116 lb) 08/05/2020 3:34 PM EDT Height 157.5 cm (5' 2 ) 08/05/2020 3:34 PM EDT Body Mass Index 21.22 08/05/2020 3:34 PM EDT Plan of Treatment Health Maintenance Due Date Last Done Comments Covid-19 Vaccine (#1) 06/08/1971 HEPATITIS C SCREENING 1988 TOBACCO CHECK/ADVISE 1988 PNEUMOCOCCAL VACCINE FOR HIG H RISK PATIENTS (#1) 1989 BASELINE HEALTH EXAM 40-64 07/03/202007/03, 06/14/2018, 06/14/2018 COLON CANCER SCREENING 2020 SHINGLES VACCINE (1 of 2) 2020 DTAP/TDAP/TD (2 - Td or Tdap) 02/23/2021 02/23/2011, 12/29/2010 MAMMOGRAM 07/12/2022 07/12/2021, 06/28, 07/07/2019, Additional history exists CERVICAL CANCER SCREENING 12/07/20222019, 06/18/2013 (External Completion) CHOLESTEROL SCREENING 06/14/2023 06/14/2018 INFLUENZA (Season Ended) 2024 Care Teams Tobacco Drummer Relationship Specialty Start Date End Date Crystal Taylor MD [address] [place] [id number] PCP - General Internal Medicine 08/16/21
--- OUTSIDE RECORDS SUMMARY | 2024-09-11 12:54 | XMS_ITS | Encounter Summary ---
Author Organization [facility] Address [address] [place] [address] Care Team Providers Care Pest Control Service Representative Name Role Phone Shana Santana DO Primary Care Pro vider Unavailable Crystal Taylor MD Primary Care Provider [phone] Encounter Details Date Type Department Care Team Description 03/11/2015 Pt. Non Urgent Medic al Question Adult Medicine [address] [address] Shana Santana DO Social History Tobacco Use Types Packs/Day Years Used Date Smoking Tobacco: Heavy Smoker Cigarettes 1 Smokeless Tobacco: Former Alcohol Use Standard Drinks/Week Comments No 0 (1 standard drink = 0.6 oz pur e alcohol) Sex Assigned at Date Recorded Not on file documented as of this encounter Progress Notes * Kacy Young M.A. - 03/11/2015 9:57 AM ESTFrom: Greta Collazo To: Shana Melendez DO Sent: 03/11/2015 9:30 AM EST Subject: painful, ongoing ear problem Dear Dr Pandya, I have an ongoing painful ear problem that has not been diagnosed or properly remedied for over 3 years. I saw one of your P.A.s recently who sent me to the precision lens grinder apprentice. He put me on 1 month of antibiotics and steroid cream. I have 5 days left of the antibiotic and the problem is not resolved andas painful as it was a month ago. Please help. I am fatigued, nauseous, feverish and in excruciating pain. It affects my life and causes me to lose work. 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 I have posted my communication with Robert, after I called for a follow-up due to no improvement. Henevelia responded to my email asking for the referral, suggestions for pain relief. Could you please help me with these issues-pain. Maybe refer me to ENT doctor? Thank you, Greta Fishman, Thank you for getting back to me. A referral would be appreciated. It needs to be some wherethat takes my insurance. Is there anything you can suggest to relieve the excruciating pain and pressure? Is a warm compress a good idea? Thank you. ----- Message ----- From: Raphael Jones PA-C Sent: 03/01/2015 3:51 PM EST To: Greta Collazo Subject: Ongoing ear problems .... I am at a loss to what else I can possibly add especially in light of the fact that 2 dermatologists, 2 ears, nose and throat specialists and several adult medicine doctors have been unable to help you. If you would like I could refer you to a teaching institution in [place] or [place] for their input. documented in this encounter Plan of Treatment Not on file documented as of this encounter Visit Diagnoses Not on filedocumented in this encounter Care Teams Pest Control Service Representative Relationship Specialty Start Date End Date Shana Santana DO PCP - General Internal Medicine 01/05/15 08/15/21 Crystal Taylor MD [address] [place] [phone] PCP - General Internal Medicine 08/16/21 documented as of this encounter
--- OUTSIDE RECORDS SUMMARY | 2024-09-11 12:54 | XMS_ITS | Encounter Summary ---
Author Organization [facility] Address [address] [place] [address] Care Team Providers Care Plastic Manager Name Role Phone Shana Santana DO Primary Care Pro vider Unavailable Crystal Taylor MD Primary Care Provider [phone] Encounter Details Date Type Department Care Team Description 09/14/2015 Umbrella Tipper Hand Report Medical Records [address] [place] [id number] Gutierrez Haskins Social History Tobacco Use Types [...] on filedocumented in this encounter Care Teams Plastic Manager Relationship Specialty Start Date End Date Shana Santana DO PCP - General Internal Medicine 01/05/15 08/15/21 Crystal Taylor MD [address] [place] [address] [phone] PCP - General Internal Medicine 08/16/21 documented as of this encounter
--- OUTSIDE RECORDS SUMMARY | 2024-09-11 12:54 | XMS_ITS | Encounter Summary ---
Author Organization [facility] Address [address] [place] [address] Care Team Providers Care Director Script Name Role Phone Shana Santana DO Primary Care Pro vider Unavailable Crystal Taylor MD Primary Care Provider [phone] Reason for Visit * Reason Onset Date Comments My Chart Appointment 09/12/2018 Encounter Details Date Type Department Care Team Description 09/12/2018 Telephone Adult Medicine [address] [address] Shana Santana DO My Chart Appointment Social [...] on filedocumented in this encounter Care Teams Director Script Relationship Specialty Start Date End Date Shana Santana DO PCP - General Internal Medicine 01/05/15 08/15/21 Crystal Taylor MD [address] [place] [id number] PCP - General Internal Medicine 08/16/21 documented as of this encounter
--- OUTSIDE RECORDS SUMMARY | 2024-09-11 12:54 | XMS_ITS | Encounter Summary ---
Author Organization [facility] Address [address] [place] [address] Care Team Providers Care Biochemistry Teacher Name Role Phone Shana Santana DO Primary Care Pro vider Unavailable Crystal Taylor MD Primary Care Provider [phone] Encounter Details Date Type Department Care Team Description 08/13/2015 Digital Printer Report Medical Records [address] [place] [address] Raymon Villeda MD Social History Tobacco Use [...] on filedocumented in this encounter Care Teams Biochemistry Teacher Relationship Specialty Start Date End Date Shana Santana DO PCP - General Internal Medicine 01/05/15 08/15/21 Crystal Taylor MD [address] [place] [address] [phone] PCP - General Internal Medicine 08/16/21 documented as of this encounter
[2024-09-11 16:41] LABS: Bacterial Vaginosis PCR NEGATIVE (Negative); Candida Group PCR NOT DETECTED (Not Detect); Candida glab krusei PCR NOT DETECTED (Not Detect); Trichomonas vaginalis PCR NOT DETECTED (Not Detect)
[2024-09-11 17:14] LABS: CT PCR NOT DETECTED (Not Detect.); NG PCR NOT DETECTED (Not Detect.)
== END 2024-09-11 10:53 | disposition home or self-care (01) ==
LOC: HO.LNP 10:52
PROVIDERS: PCP Internal Medicine; Visit Provider Advanced Practice Midwife
DX: R10.2 Pelvic and perineal pain (principal); D25.9 Leiomyoma of uterus, unspecified
CPT/HCPCS: 81003; 81515; 87491; 87591

== ENCOUNTER 2024-09-11 10:52 | Outpatient (AMB) | payer OTHER, SELFPAY ==
--- NOTE | 2024-09-11 10:56 | MHC.OFFVIS ---
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 Recent pelvic ultrasound reveals uterine fibroid. She reports pain is all over the lower abdomen. History of enlarged left groin lymph node for years, not noted today. Other enlarged lymph in the past, had a workup for the enlarged lymph nodes many years ago. Has recent muscle spasms in the the lower pelvic area. Occasional sharp shooting pains from vaginal up through the abdomen. Last January she slipped and fell landed in an open splits position w/overstretching and felt pain. Having left sided low back pain in area of SI joint she is uncertain if onset is in the timing of her fall. She denies vaginal itching, discharge or odor, sometimes can't hold her urine, no LOF. She is not sexually active. Menopause 5-7yrs. ago. History of pituary adenoma, diagnosed age 17. FOR[facility]LY [facility] Medical History (Updated 09/11/24 @ 12:18 by Eliz Floyd CNM) Pelvic pain Contact dermatitis Breast pain History of mammogram (~07/12/21) Hyperprolactinemia Depression Asthma Former smoker Lower abdominal pain Generalized abdominal pain Marijuana smoker Nicotine dependence, cigarettes, uncomplicated Vitamin D deficiency Pituitary adenoma Hypercholesteremia Surgical History History of colonoscopy (~02/16/23) History of wisdom tooth extraction Family History (Updated 09/11/24 @ 11:20 by DAVID Acosta) Paternal Aunt History of breast cancer Maternal Grandfather Colon cancer Social History (Updated 09/11/24 @ 11:20 by DAVID Acosta) Alcohol intake: never Patient Tobacco Use Status: Former Tobacco user Tobacco use type: Cigarette Cigarettes Per Day: 5 Years Smoked: (current smoker, onset 14, x 37yrs, mainly 1ppd, now 1/4ppd - 30pyh) Female Reproductive History Menstrual Age of menopause: 45 Total pregnancies: 0 Review of Systems Const All systems reviewed & are unremarkable except as noted in HPI and below Physical Exam Vital Signs: Last Vital Signs BP 100/60 09/11/24 11:22 Const General: cooperative, healthy appearing and no acute distress Orientation/consciousness: patient oriented x3 GI Inspection: Yes normal to inspection Palpation (GI): Soft to palpation and Other GI palpation findings present (Nontender) Rectal Exam - Female: visual inspection normal General: Yes bladder normal to palpation External Female Exam: normal appearance of the urethra Speculum Exam - Vagina: normal appearance of the vagina, normal palpation and normal vaginal discharge Speculum Exam - Cervix: normal appearance of the cervix and normal palpation Bimanual exam- vagina & uterus: normal bimanual exam, normal palpation, uterine size normal, bladder normal to palpation, normal palpation, uterine shape normal and non-tender Bimanual Exam- Adnexa, other: normal adnexae Neuro General: patient oriented x3 Results AMB Urinalysis, Automated UA Leukoctes 0.5 Jaqui/uL Last Edit by DAVID Acosta on 09/11/24 11:26 UA Nitrite Negative Last Edit by DAVID Acosta on 09/11/24 11:26 UA Urobilinogen 0 mg/dL Last Edit by DAVID Acosta on 09/11/24 11:26 UA Protein 0.5 mg/dL Last Edit by DAVID Acosta on 09/11/24 11:26 UA pH 5.5 Last Edit by DAVID Acosta on 09/11/24 11:26 UA Blood 0 Jean-Paul/uL Last Edit by DAVID Acosta on 09/11/24 11:26 UA Specific Sigourney 1.030 Last Edit by DAVID Acosta on 09/11/24 11:26 UA Ketone Negative Last Edit by DAVID Acosta on 09/11/24 11:26 UA Bilirubin 0 mg/dL Last Edit by DAVID Acosta on 09/11/24 11:26 UA Glucose 0 mg/dL Last Edit by DAVID Acosta on 09/11/24 11:26 Results Reviewed Results Reviewed: [address] [address] Ultrasound Report Signed Patient: Greta Collazo MR#: [id number] : 1970 Acct:[id number] Age/Sex: 53 / F ADM Date: 08/12/24 Loc: HO.US Attending Dr: Karissa Coats PA-C Ordering Physician: Karissa Coats PA-C Date of Service: 08/12/24 Procedure(s): US pelvic and transvaginal Accession Number(s): [id number] cc: Karissa Coats PA-C; Fernando Hernandez MD~ EXAMINATION: US PELVIS TRANSABDOMINAL AND TRANSVAGINAL HISTORY: R10.30 - Lower abdominal pain, unspecified COMPARISON: There are no prior studies for comparison. TECHNIQUE: Transabdominal and endovaginal real-time 2D garcia-scale ultrasound was performed. FINDINGS: Uterus: The uterus is normal in size, measuring 5.6 x 1.7 x 2.8 cm. Myometrium has a normal echotexture. There is a left sided fibroid measuring 7 x 7 x 8 mm. Endometrium: The endometrial stripe measures 3 mm in thickness. Right ovary: The right ovary measures 1.3 x 1.7 x 1.7 cm. The right ovary is normal in size and echotexture. Left ovary: The left ovary measures 1.0 x 1.7 x 1.1 cm. The left ovary is normal in size and echotexture. Pelvic fluid: none. US/US pelvic and transvaginal IMPRESSION: 7 x 7 x 8 mm left-sided uterine fibroid. Otherwise unremarkable pelvic ultrasound. Electronically signed by: Kike Mendes MD 08/13/2024 07:06 AM EDT Dictated By: Kike Mendes MD Signed By: <Electronically signed by Kike Mendes MD in OV> 08/13/24 0706 DD/ 1417 TD/TT: 08/12/[address] Service: Assessment & Plan Assessment & Plan (1) Leiomyoma: Code(s): D21.9 - Benign neoplasm of connective and other soft tissue, unspecified Plan: Discussed: Ultrasound findings-IMPRESSION: 7 x 7 x 8 mm left-sided uterine fibroid. Otherwise unremarkable pelvic ultrasound. She was never told in the past she has had an fibroid before. Counseled re: Leiomyoma: common pelvic neoplasm. Differential diagnosis-may include but not limited to- leiomyosarcoma which is a rare uterine sarcoma 3-7/100,000, difficult to distinguish from fibroids on ultrasound from uterine sarcoma's. Unlikely any single test will have a highly positive predictive value. Hysterectomy is not recommended for sole purpose of excluding malignant neoplasm. Consult for surgical exploration, medical treatment, other treatments, verses expectant management, pros and cons, risks and benefits. Expectant management follow up in 6 months, then yearly for stability. Patient prefers to proceed with expectant management. Referral to MD if indicated for level of care if indicated Report any PMB, pelvic pressure, bloating, or pain changes. The patient expressed understanding and agreement with the plan of care. All of her questions and concerns were addressed to the best of my ability. (2) Pelvic pain: Code(s): R10.2 - Pelvic and perineal pain Category: Medical Plan: Total time I personally spent on visit and management today: ?30 minutes. Time spent included review of pertinent office notes in the electronic health record; review of laboratory and imaging results; review of personal family medical history; performing physical exam; discussing diagnosis and plan of care with the patient; documenting the encounter in the EMR. Plan Discuss workup for pelvic pain to include urine dip, was negative today, GC chlamydia BV panel obtained await results for plan of care. Reviewed various causes for pelvic pain can originate from the GI, urinary, or musculoskeletal systems. Advised to follow up to her primary care with concerns regarding her enlarged lymph nodes and additionally the concerns for her lower back pain for further evaluation. The patient expressed understanding and agreement with the plan of care. All of her questions and concerns were addressed to the best of my ability. This note is constructed using voice recognition software. While every effort has been made to ensure accuracy, networks computer consultant errors may have been included. Schedule annual exam to be done the same day for her follow up visit for ultrasound in January early February 2025. Orders: Orders AMB Urinalysis Automated Today R10.2 - Pelvic and perineal pain Bacterial Vaginosis Panel Today R10.2 - Pelvic and perineal pain US pelvic and transvaginal 02/09/25 D21.9 - Benign neoplasm of connective and other soft tissue, unspecified CT NG by PCR Today R10.2 - Pelvic and perineal pain Coding Level of Care Code New Pt Level 3 (68126) Diagnoses Leiomyoma D21.9 Pelvic pain R10.2
[2024-09-11 11:22] VITALS: BP 100/60
== END 2024-09-11 11:59 | disposition home or self-care (01) ==
LOC: HO.HWS 10:52
PROVIDERS: PCP Internal Medicine; Visit Provider Advanced Practice Midwife
DX: D21.9 Benign neoplasm of connective and other soft tissue, unspecified (principal); R10.2 Pelvic and perineal pain
CPT/HCPCS: 99203

== ENCOUNTER 2024-09-16 15:35 | Outpatient (REF) | payer OTHER, SELFPAY ==
--- NOTE | ~2024-09-16 | CT_ITS ---
CLINICAL HISTORY: R91.1 - Solitary pulmonary nodule CT chest without contrast Comparison: CT/KS/SR - CT CHEST WO IV CON - 03/25/24 15:32 EST Findings: No cardiomegaly or significant pericardial effusion. No mediastinal adenopathy. No thyroid lesion. Minimal centrilobular emphysema. Regions of scarring and/or atelectasis are again noted, stable. Mild airway thickening noted. Few scattered 2-3 mm nodules are also again noted, unchanged. For example, superior segment right lower lobe axial 46. No new, increasing or suspicious nodule. Visualized upper abdomen demonstrates no acute process. No suspicious bone lesion. Impression: Stable tiny scattered benign pulmonary nodules. Chronic interstitial changes. This document has been electronically signed by: Hilario Matute MD on 09/17/2024 11:19:33
--- OUTSIDE RECORDS SUMMARY | 2024-09-16 16:33 | XMS_ITS | Encounter Summary ---
Author Organization [facility] Address [address] [place] [address] Care Team Providers Care Battery Service Technician Name Role Phone Shana Santana DO Primary Care Pro vider Unavailable Crystal Taylor MD Primary Care Provider [phone] Encounter Details Date Type Department Care Team Description 06/08/2015 Manager Play Report Medical Records [address] [place] [address] Gutierrez Haskins Social History Tobacco Use Types [...] on filedocumented in this encounter Care Teams Battery Service Technician Relationship Specialty Start Date End Date Shana Santana DO PCP - General Internal Medicine 01/05/15 08/15/21 Crystal Taylor MD [address] [place] [address] [phone] PCP - General Internal Medicine 08/16/21 documented as of this encounter
--- OUTSIDE RECORDS SUMMARY | 2024-09-16 16:33 | XMS_ITS | Encounter Summary ---
Author Organization [facility] Address [address] [place] [address] Care Team Providers Care Casing Puller Name Role Phone Shana Santana DO Primary Care Pro vider Unavailable Crystal Taylor MD Primary Care Provider [phone] Encounter Details Date Type Department Care Team Description 08/27/2015 Service Trainer Report Medical Records [address] [place] [address] Raymon Villeda MD Social History Tobacco Use [...] on filedocumented in this encounter Care Teams Casing Puller Relationship Specialty Start Date End Date Shana Santana DO PCP - General Internal Medicine 01/05/15 08/15/21 Crystal Taylor MD [address] [place] [address] [phone] PCP - General Internal Medicine 08/16/21 documented as of this encounter
--- OUTSIDE RECORDS SUMMARY | 2024-09-16 16:33 | XMS_ITS | Encounter Summary ---
Author Organization [facility] Address [address] [place] [address] Care Team Providers Care Clinical Mental Health Counselor Name Role Phone Shana Santana DO Primary Care Pro vider Unavailable Crystal Taylor MD Primary Care Provider [phone] Encounter Details Date Type Department Care Team Description 08/13/2015 Associate Relations Specialist Report Medical Records [address] [place] [address] Raymon Villeda MD Social History Tobacco Use [...] on filedocumented in this encounter Care Teams Clinical Mental Health Counselor Relationship Specialty Start Date End Date Shana Santana DO PCP - General Internal Medicine 01/05/15 08/15/21 Crystal Taylor MD [address] [place] [address] [phone] PCP - General Internal Medicine 08/16/21 documented as of this encounter
--- OUTSIDE RECORDS SUMMARY | 2024-09-16 16:33 | XMS_ITS | Encounter Summary ---
Author Organization [facility] Address [address] [place] [address] Care Team Providers Care Research Mechanic Name Role Phone Shana Santana DO Primary Care Pro vider Unavailable Crystal Taylor MD Primary Care Provider [phone] Reason for Visit * Reason Onset Date Comments My Chart Appointment 09/12/2018 Encounter Details Date Type Department Care Team Description 09/12/2018 Telephone Adult Medicine [address] [address] Shana Santana DO My Chart Appointment Social [...] on filedocumented in this encounter Care Teams Research Mechanic Relationship Specialty Start Date End Date Shana Santana DO PCP - General Internal Medicine 01/05/15 08/15/21 Crystal Taylor MD [address] [place] [phone] PCP - General Internal Medicine 08/16/21 documented as of this encounter
--- OUTSIDE RECORDS SUMMARY | 2024-09-16 16:33 | XMS_ITS | Encounter Summary ---
Author Organization [facility] Address [address] [place] [address] Care Team Providers Care Machine Helper Name Role Phone Shana Santana DO Primary Care Pro vider Unavailable Crystal Taylor MD Primary Care Provider [phone] Encounter Details Date Type Department Care Team Description 01/11/2015 Release of Information Medical Records [address] [place] [id number] Abstract, Provider Social History Tobacco Use Types [...] on filedocumented in this encounter Care Teams Machine Helper Relationship Specialty Start Date End Date Shana Santana DO PCP - General Internal Medicine 01/05/15 08/15/21 Crystal Taylor MD [address] [place] [id number] PCP - General Internal Medicine 08/16/21 documented as of this encounter
--- OUTSIDE RECORDS SUMMARY | 2024-09-16 16:33 | XMS_ITS | Encounter Summary ---
Author Organization [facility] Address [address] [place] [address] Care Team Providers Care Supervisor Sulfuric Acid Plant Name Role Phone Shana Santana DO Primary Care Pro vider Unavailable Crystal Taylor MD Primary Care Provider [phone] Encounter Details Date Type Department Care Team Description 03/11/2015 Pt. Non Urgent Medic al Question Adult Medicine [address] [address] Shana Santana DO Social History Tobacco Use [...] P.A.s recently who sent me to the food service team member. He put me on 1 month of [...] refer you to a teaching institution in [place] or [place] for their input. documented in this encounter Plan of Treatment Not on file documented as of this encounter Visit Diagnoses Not on filedocumented in this encounter Care Teams Supervisor Sulfuric Acid Plant Relationship Specialty Start Date End Date Shana Santana DO PCP - General Internal Medicine 01/05/15 08/15/21 Crystal Taylor MD [address] [place] [phone] PCP - General Internal Medicine 08/16/21 documented as of this encounter
== END 2024-09-16 15:36 | disposition home or self-care (01) ==
LOC: HO.CT 15:35
PROVIDERS: PCP Internal Medicine; Visit Provider Internal Medicine Pulmonary Disease
DX: R91.1 Solitary pulmonary nodule (principal)
CPT/HCPCS: 71250

== ENCOUNTER → 2024-09-16 15:36 | Outpatient (BNV) | payer OTHER, SELFPAY | PROVIDERS: PCP Internal Medicine; Visit Provider Radiology Vascular & Interventional Radiology | DX: R91.1 Solitary pulmonary nodule (principal) | CPT/HCPCS: 71250 ==

== ENCOUNTER 2024-09-30 14:02 | Outpatient (AMB) | payer OTHER, SELFPAY ==
[2024-09-30 14:06] VITALS: BP 102/62; PULSE 92; O2SAT 97; BMI 27.8
--- NOTE | 2024-09-30 14:06 | A.OFFVIS_ITS ---
Vital Signs 09/30/24 14:06 Height 5 ft 0.75 in Weight 146 lb BMI 27.8 BP 102/62 Blood Pressure Location Rt brachial Position Sitting Pulse 92 Pulse Source Pulse Oximeter Pulse Oximetry (%) 97 Oxygen Delivery Method Room Air Intake Visit Reasons: pulm nodule Allergies No Known Allergies Allergy (Verified 09/02/24 11:15) HPI HPI pulm nodule: Details: 53-year-old lady, recent 30+ pack-year smoker, quit 2 months prior referred from lung cancer screening program for follow-up on multiple bilateral pulmonary nodules. Initial plan was to obtain PET, however it was denied by insurance. On discussing patient's case at tumor board, consensus was to repeat CT chest 3 months from the index one, now scheduled for November of 2023. Her follow-up CT scan showed increasing right apical density. Her CT chest showed underlying mild COPD. She denies any pulmonary related concerns or complaints. Initially biopsy was planned, however patient opted to undergo PET testing instead that showed no significant FDG uptake. After the last office visit patient had a six-month follow-up CT scan from the prior 3 months follow-up that showed no significant changes from prior. [facility] Medical History (Updated 09/11/24 @ 12:18 by Eliz Floyd CNM) Pelvic pain Contact dermatitis Breast pain History of mammogram (~07/12/21) Hyperprolactinemia Depression Asthma Former smoker Lower abdominal pain Generalized abdominal pain Marijuana smoker Nicotine dependence, cigarettes, uncomplicated Vitamin D deficiency Pituitary adenoma Hypercholesteremia Surgical History History of colonoscopy (~02/16/23) History of wisdom tooth extraction Family History (Updated 09/11/24 @ 11:20 by DAVID Acosta) Paternal Aunt History of breast cancer Maternal Grandfather Colon cancer Social History (Updated 09/11/24 @ 11:20 by DAVID Acosta) Alcohol intake: never Patient Tobacco Use Status: Former Tobacco user Tobacco use type: Cigarette Cigarettes Per Day: 5 Years Smoked: (current smoker, onset 14, x 37yrs, mainly 1ppd, now 1/4ppd - 30pyh) Review of Systems Const Denies daytime sleepiness, Denies excessive sweating, Denies fatigue, Denies fever(s), Denies lethargy, Denies malaise, Denies night sweats, Denies snoring and Denies weight loss Eyes Denies blurry vision and Denies itchy eyes ENT Denies nasal congestion, Denies post nasal drip, Denies sinus pain, Denies sinus pressure and Denies other ( Thrush) Card Denies chest pain, Denies pedal edema, Denies dyspnea, Denies orthopnea and De nies paroxysmal nocturnal dyspnea Resp Denies cough, Denies hemoptysis, Denies excessive phlegm production, Denies dyspnea, Denies snoring and Denies wheezing GI Denies abdominal pain and Denies heartburn Musc Denies myalgias, Denies arthralgias and Denies joint swelling Skin/Breast Denies rash Neuro Denies memory loss and Denies seizure-like activity Psych Denies abnormal sleep pattern, Denies anxiety and Denies memory loss Endo Denies excessive sweating, Denies fatigue and Denies heat intolerance Gagandeep/Lymph Denies easy bruising Aller/Immun Denies itchy eyes, Denies seasonal rhinorrhea and Denies wheezing Physical Exam Vital Signs: Last Vital Signs Pulse 92 09/30/24 14:06 BP 102/62 09/30/24 14:06 Pulse Ox 97 09/30/24 14:06 Oxygen Delivery Method Room Air 09/30/24 14:06 BMI result Body Mass Index 27.8 Const General: no acute distress and alert Nutritional Appearance: not obese Orientation/consciousness: Other orientation findings ( oriented) HEENT Head: Yes atraumatic Eyes General: appearance normal, both eyes and all related structures Sclerae: sclerae normal EOM: EOMs intact bilaterally Neck Neck: Yes supple Lymphatic: no lymphadenopathy noted Resp Effort & Inspection: normal respiratory effort and no use of accessory muscles Auscultation: clear to auscultation bilaterally Cardio Rate: regular rate Rhythm: regular rhythm Heart sounds: no gallops, no murmurs and no rubs Skin General skin exam: other ( warm) Extrem General: No clubbing, No cyanosis and No edema Assessment & Plan Assessment & Plan (1) Right upper lobe pulmonary nodule: Comment: (plate-like scarring in RUL 1.3 x 0.4 x 2.7cm - on 08/29/23 LDCT) Code(s): R91.1 - Solitary pulmonary nodule Category: Medical Plan: No changes on six-month follow-up scan. Will repeat CT scan in 12 months. (2) COPD (chronic obstructive pulmonary disease): Code(s): J44.9 - Chronic obstructive pulmonary disease, unspecified Category: Medical Plan: Clinically asymptomatic. Continue to monitor clinically. Orders: Orders CT chest wo IV con 08/30/25 R91.1 - Solitary pulmonary nodule Coding Level of Care Code Est Pt Level 4 (76793) Diagnoses Right upper lobe pulmonary nodule R91.1 COPD (chronic obstructive pulmonary disease) J44.9
--- OUTSIDE RECORDS SUMMARY | 2024-09-30 15:51 | XMS_ITS | Clinical Summary ---
Author Organization [facility] Address [address] [place] [address] Care Team Providers Care Java Flex Developer Name Role Phone Crystal Taylor MD Primary Care Provider [phone] Allergies No known active allergies Medications No [...] 06/14/2018 INFLUENZA (Season Ended) 2024 Care Teams Java Flex Developer Relationship Specialty Start Date End Date Crystal Taylor MD [address] [place] [phone] PCP - General Internal Medicine 08/16/21
== END 2024-09-30 14:15 | disposition home or self-care (01) ==
LOC: HO.HPS 14:04
PROVIDERS: PCP Physician Assistant Medical; Visit Provider Internal Medicine Pulmonary Disease
DX: R91.1 Solitary pulmonary nodule (principal); J44.9 Chronic obstructive pulmonary disease, unspecified
CPT/HCPCS: 99214

== ENCOUNTER → 2024-09-30 14:02 | Outpatient (BNVA) | payer OTHER, SELFPAY | PROVIDERS: PCP Physician Assistant Medical; Visit Provider Internal Medicine Pulmonary Disease ==